=== PATIENT | female | born 1940 | race Caucasian/White ===

== ENCOUNTER 2018-01-03 13:36 | Emergency (ER) | payer MEDICARE ==
[2018-01-03] MEDS ORDERED: DUONEB 0.5-3 MG/3 ml Neb IH ONE ×2 (13:51→14:00)
--- NOTE | 2018-01-03 13:59 | ERPHSYRPT ---
- History of Present Illness Time Seen by Provider: 01/03/18 13:45 Source: patient, family Physician History: CC: short of air Hx: 77 y/o patient of [employer] Dr Gloria Pedroza, Dr Anatoliy Garcia. She has hx of chronic bronchitis. She is out of her nebs and MDI. stirred up dust this AM while cleaning the house. She has hx of allergies. She feels short of air for the past 2 hours. No chest pain. No fever. Chronic cough with chronic bronchitis. Symptoms moderate. Timing/Duration: today Severity of Dyspnea-Max: moderate Severity of Dyspnea-Current: moderate Allergies/Adverse Reactions: gabapentin Allergy (Intermediate, Verified 01/03/18 13:57) Penicillins Allergy (Mild, Verified 08/11/12 22:49) epinephrine Adverse Reaction (Intermediate, Verified 01/03/18 13:55) Home Medications: Albuterol Sulfate [Proair Hfa] 8.5 gm IH Q4HPRN PRN 06/11/17 [History] Alprazolam 0.5 mg PO DAILY 06/11/17 [History] Amlodipine Besylate 2.5 mg PO DAILY 06/11/17 [History] Aspirin 81 gm Chew [Baby Aspirin 81 mg Chew] 81 mg PO DAILY 06/11/17 [ History] Atorvastatin Calcium 20 mg PO DAILY 06/11/17 [History] Carvedilol [Coreg] 6.25 mg PO DAILY 06/11/17 [History] Clopidogrel Bisulfate 75 mg [PLAVIX 75 MG Tablet] 75 mg PO BID 06/11/17 [ History] Ergocalciferol (Vitamin D2) [Vitamin D] 50,000 unit PO WEEKLY 06/11/17 [History] Esomeprazole Magnesium [Nexium] 40 mg PO DAILY 06/11/17 [History] Hydrocodone/Acetaminophen [Hydrocodon-Acetaminoph 7.5-325] 1 each PO TID [History] Losartan/Hydrochlorothiazide [Losartan-Hctz 100-25 mg Tab] 1 each PO DAILY 06/11 [History] Meclizine HCl 25 mg [Antivert 25 mg] 25 mg PO Q12H PRN PRN 06/11/17 [ History] Nitroglycerin 0.4 mg Tablet [Nitrostat 0.4 MG Tablet] 0.4 mg SL Q5MIN PRN MR X 3 PRN 06/11/17 [History] Promethazine HCl 25 mg PO Q12H PRN PRN 06/11/17 [History] Sertraline HCl 25 mg PO Q2D 06/11/17 [History] Hx Tetanus, Diphtheria Vaccination/Date Given: No (UNSURE) Hx Influenza Vaccination/Date Given: No Hx Pneumococcal Vaccination/Date Given: Yes (2007) - Review of Systems Constitutional: Malaise, No Fever, No Chills Eyes: No Symptoms Respiratory: Cough (chronic), Dyspnea Cardiac: No Chest Pain Abdominal/Gastrointestinal: No Abdominal Pain, No Nausea, No Vomiting Musculoskeletal: No Back Pain, No Neck Pain, No Fall Skin: No Pruritis, No Rash Neurological: No Headache All Other Systems: Reviewed and Negative - Past Medical History Pertinent Past Medical History: Yes Neurological History: No Pertinent History ENT History: Cataracts Cardiac History: Myocardial Infarction ([place]) Respiratory History: Asthma, Bronchitis Endocrine Medical History: No Pertinent History Musculoskeletal History: Arthritis GI Medical History: GERD History: No Pertinent History Psycho-Social History: No Pertinent History Female Reproductive Disorders: No Pertinent History - Past Surgical History Past Surgical History: Yes Neuro Surgical History: No Pertinent History Cardiac: Cardiac Stent, Other Respiratory: No Pertinent History Gastrointestinal: Appendectomy Genitourinary: No Pertinent History Musculoskeletal: No Pertinent History Female Surgical History: Lumpectomy Other Surgical History: Right Carotid Endarterectomy - Social History Smoking Status: Former smoker Exposure to second hand smoke: Yes Drug Use: none Patient Lives Alone: No - Nursing Vital Signs Nursing Vital Signs: Initial Vital Signs Temperature 97.7 F 01/03/18 13:42 Pulse Rate 61 01/03/18 13:42 Respiratory Rate 20 01/03/18 13:42 Blood Pressure 180/84 01/03/18 13:42 O2 Sat by Pulse Oximetry 96 01/03/18 13:42 Pain Scale Pain Intensity 0 - Physical Exam General Appearance: alert Eye Exam: PERRL/EOMI Neck Exam: non-tender, supple Respiratory Exam: diminished breath sounds, No respiratory distress Cardiovascular/Chest Exam: regular rate/rhythm Abdominal/Gastrointestinal Exam: soft, No tenderness, No distention Extremity Exam: non-tender, no calf tenderness Neurologic Exam: alert, oriented x 3, cooperative, buggy man II-XII nml as tested, sensation nml, No motor deficits Skin Exam: warm, dry, No rash SpO2 Interpretation: normal SpO2: 96 Oxygen Delivery: Room Air - Course Nursing assessment & vital signs reviewed: Yes EKG Interpreted by Me: RATE (59), Sinus Skip, NORMAL AXIS, NORMAL INTERVALS ( QTc 450), Right Bundle Branch Block - Radiology Exams cxr X-ray Interpretation: Teleradiologist Report (nonacute chest with chronic features) Ordered Tests: Active Orders 24 hr Category Date Time Status EKG-ER Only STAT Care 01/03/18 13:51 Active IV Insertion STAT Care 01/03/18 13:51 Active Pulse Oximetry (ED) STAT Care 01/03/18 13:51 Active CHEST 2 VIEWS (PA AND LAT) Stat Exams 01/03/18 13:51 Completed CBC W DIFF Stat Lab 01/03/18 14:09 Completed CMP Routine Lab 01/03/18 14:09 Completed Lactic Acid Stat Lab 01/03/18 14:20 Completed Manual Differential NC Stat Lab 01/03/18 14:09 Completed NT PRO BNP Routine Lab 01/03/18 14:09 Completed TROPONIN Q3H Lab 01/03/18 14:09 Completed TROPONIN Q3H Lab 01/03/18 17:00 Ordered TROPONIN Q3H Lab 01/03/18 20:00 Ordered TROPONIN Q3H Lab 01/03/18 23:00 Ordered TROPONIN Q3H Lab 01/04/18 02:00 Ordered VENOUS BLOOD GAS Stat Lab 01/03/18 14:20 Completed Respiratory Nebulizer STAT RT 01/03/18 13:51 Completed Respiratory Nebulizer STAT RT 01/03/18 15:43 Ordered Medication Summary Generic Name Dose Route Start Last Admin Trade Name Freq PRN Reason Stop Dose Admin Furosemide 20 mg 01/03/18 15:43 Lasix 40 Mg/4 Ml IV 01/03/18 15:44 STAT ONE Discontinued Medications Generic Name Dose Route Start Last Admin Trade Name Freq PRN Reason Stop Dose Admin Albuterol/Ipratropium 3 ml 01/03/18 13:51 01/03/18 14:07 Duoneb 0.5-3 Mg/3 Ml Neb IH 01/03/18 13:52 3 ml STAT ONE Administration Albuterol/Ipratropium Confirm 01/03/18 14:00 Duoneb 0.5-3 Mg/3 Ml Neb Administered 01/03/18 14:01 Dose 3 ml IH .STK-MED ONE Lab/Rad Data: Laboratory Result Diagrams 01/03/18 14:09 01/03/18 14:09 Laboratory Results 01/03/18 01/03/18 01/03/18 Range/Units 14:20 14:09 14:09 WBC 5.2 (4.0-10.5) K/mm3 RBC 3.98 L (4.1-5.4) M/mm3 Hgb 10.9 L (12.0-16.0) gm/dl Hct 33.9 L (35-47) % MCV 85.2 (78-100) fl MCH 27.3 (26-32) pg MCHC 32.2 (32-36) g/dl RDW 14.1 H (11.5-14.0) % Plt Count 153 (150-450) K/mm3 MPV 9.6 H (6-9.5) fl Segmented Neutrophils 58 (36.0-66.0) % Lymphocytes (Manual) 31 (24-44) % Monocytes (Manual) 6 (0.0-12.0) % Eosinophils (Manual) 3 (0.00-3.0) % Differential Comment NORMAL Atypical Lymphocytes 2 % Platelet Estimate NORMAL (NORMAL) VBG pH 7.31 L (7.32-7.42) VBG pCO2 at Pat Temp 55 (42-55) mm/Hg VBG pO2 at Pat Temp 18 L (25-40) mm/Hg VBG HCO3 27.7 (22-28) meq/L VBG O2 Sat (Deonte) 34.7 L (95-100) VBG Base Excess 0.6 (-2.0-2.0) VBG Hemoglobin 11.8 VBG Carboxyhemoglobin 1.4 (0.0-6.9) % T HGB POC Potassium 4.1 (3.5-5.1) Sodium 132 L (136-145) mEq/L Potassium 4.3 (3.5-5.1) mEq/L Chloride 96 L (98-107) mEq/L Carbon Dioxide 27.7 (21-32) mEq/L Anion Gap 12.8 (5-15) MEQ/L BUN 22 H (9-20) mg/dL Creatinine 1.87 H (0.55-1.30) mg/dl Estimated GFR 28 ML/MIN Glucose 98 (70-110) MG/DL Lactic Acid 0.7 (0.4-2.0) Calcium 8.4 L (8.5-10.1) mg/dL Total Bilirubin 0.50 (0.2-1.0) mg/dL AST 27 (15-37) U/L ALT 17 (12-78) U/L Alkaline Phosphatase 70 (46-116) U/L Troponin I < 0.017 (0.000-0.056) ng/ml NT-Pro-B Natriuret Pep 1049 H (0-450) pg/ml Serum Total Protein 8.2 (6.4-8.2) gm/dL Albumin 3.8 (3.4-5.0) g/dL - Progress Progress Note: 01/03/18 15:44 Pt stable. Some basilar rales. Will give one dose lasix, Rx for alb and doxy and prednisone. She will have appt with Marimar Soto NP this week for recheck. Counseled pt/family regarding: lab results, diagnosis, need for follow-up, rad results - Departure Time of Disposition: 15:44 Departure Disposition: Home Clinical Impression: Shortness of breath, CHF (congestive heart failure), Acute exacerbation of chronic bronchitis Condition: Stable Critical Care Time: No Referrals: MARIMAR SOTO NP [Primary Care Provider] - Instructions: Heart Failure, Exacerbation of COPD ([place]) Additional Instructions: Rx albuterol neb soln. Rx doxycycline. Rx prednisone. See CHUN Soto this week for recheck. Return for problems or concerns. Avoid smoke or dust exposure. Prescriptions: Albuterol 2.5 mg/3 ml Neb [Proventil 2.5 mg/3 ml Neb] 2.5 mg IH Q4-6HPRN PRN #1 neb PRN Reason: breathing Doxycycline Hyclate 100 mg [Vibramycin 100 MG] 1 tab PO BID #20 tab Prednisone 20 mg [Deltasone 20 mg] 2 tab PO DAILY #10 tablet
[2018-01-03 14:23] LABS: Lactic Acid 0.7 (0.4-2.0); VBG BASE EXCESS 0.6 (-2.0-2.0); VBG CARBOXYHEMOGLOBIN 1.4 % T HGB (0.0-6.9); VBG HCO3- 27.7 meq/L (22-28); VBG HEMOGLOBIN 11.8; VBG O2 SATURATION 34.7 (95-100); VBG POTASSIUM 4.1 (3.5-5.1); VBG pH 7.31 (7.32-7.42)
[2018-01-03 14:28] LABS: Hematocrit 33.9 % (35-47); Hemoglobin 10.9 gm/dl (12.0-16.0); Mean Cell Volume 85.2 fl (78-100); Mean Corpuscular Hgb Concent. 32.2 g/dl (32-36); Mean Platelet Volume 9.6 fl (6-9.5); Platelet Count 153 K/mm3 (150-450); Red Blood Count 3.98 M/mm3 (4.1-5.4); Red Cell Distribution Width 14.1 % (11.5-14.0); White Blood Count 5.2 K/mm3 (4.0-10.5)
[2018-01-03 14:36] LABS: Mean Corpuscular Hemoglobin 27.3 pg (26-32)
[2018-01-03 14:44] LABS: ALBUMIN 3.8 g/dL (3.4-5.0); ALKALINE PHOSPHATASE 70 U/L (46-116); ANION GAP 12.8 MEQ/L (5-15); BLOOD UREA NITROGEN 22 mg/dL (9-20); CHLORIDE 96 mEq/L (98-107); Calcium 8.4 mg/dL (8.5-10.1); Carbon Dioxide 27.7 mEq/L (21-32); Creatinine 1 1.87 mg/dl (0.55-1.30); EST GLOMERULAR FILTRATION RATE 28 ML/MIN; Glucose 98 MG/DL (70-110); NT PRO BNP 1049 pg/ml (0-450); Potassium 4.3 mEq/L (3.5-5.1); SGOT/AST 27 U/L (15-37); SGPT/ALT 17 U/L (12-78); SODIUM 132 mEq/L (136-145); Total Protein 8.2 gm/dL (6.4-8.2)
[2018-01-03 14:47] LABS: TROPONIN < 0.017 ng/ml (0.000-0.056)
--- NOTE | 2018-01-03 14:50 | XRAY ---
Indication: Dyspnea. Chronic bronchitis. Comparison: July 27, 2013. PA/lateral chest remains clear. Heart and mediastinal structures within normal limits. Bony thorax intact with mild degenerative changes and thoracolumbar junction scoliosis. Impression: Nonacute chest with chronic features.
[2018-01-03 15:29] LABS: ATYPICAL LYMPHS 2 %; Eosinophil 3 % (0.00-3.0); Lymphocytes 31 % (24-44); Monocyte 6 % (0.0-12.0); Neutrophils 58 % (36.0-66.0); Platelet Estimate NORMAL (NORMAL); Total Cells Counted 100
[2018-01-03] MEDS ORDERED: Lasix 40 MG/4 ML IV ONE (15:43)
[2018-01-03] MEDS ORDERED: PROVENTIL 2.5 MG/3 ML NEB IH ONE ×2 (15:43→16:23)
[2018-01-03] MEDS ORDERED: Lasix 40 MG/4 ML ONE (16:13)
[2018-01-03 16:47] VITALS: BP 143/76; PULSE 64; O2SAT 99
== END 2018-01-03 16:49 | disposition home or self-care (01) ==
LOC: ED 13:36
DX: J42 Unspecified chronic bronchitis (principal); I50.9 Heart failure, unspecified; Z79.899 Other long term (current) drug therapy; I25.2 Old myocardial infarction
CPT/HCPCS: 36000; 36415; 71046; 80053; 82805; 83605; 83880; 84484; 85025; 93005; 94150; 94640; 96374; 99284; J1940; A9270-GY

== ENCOUNTER → 2018-02-08 | Emergency (ER) | payer MEDICARE ==
[~2018-02-08] MED LIST: BABY ASPIRIN 81 MG CHEW ONE; BABY ASPIRIN 81 MG CHEW PO ONE; Nitrostat 0.4 MG (ED) SL ONE
--- NOTE | 2018-02-08 01:32 | ERPHSYRPT ---
- History of Present Illness Time Seen by Provider: 02/08/18 01:21 Historian: patient, family Exam Limitations: no limitations Physician History: The patient is a 77-year-old female with her complaining of a sudden onset of left-sided chest pain and shortness of breath that began about 20 minutes before arrival. Her pain was a 7 out of 10 but now it is a 3 out of 10. She has not taken any nitroglycerin nor aspirin. She states the pain is more like a pressure. She was not nauseated. She was not sweaty. She had a heart attack in 2006. Since the heart attack she has had 3 cardiac stents placed. She has never taken any nitroglycerin since the heart attack. She used to smoke but quit in 2006. Her past medical history is significant for [place] , coronary artery disease, cardiac stents, hypertension, arthritis, high cholesterol, COPD. She has no local doctor. Her heel sprayer first, Dr Castro, is in [place], as is her primary medical doctor. Timing/Duration: today (20 min) Activities at Onset: rest Quality: pressure Location: substernal Chest Pain Radiation: no radiation Severity of Pain-Max: moderate Severity of Pain-Current: mild Modifying Factors: Improves With: nothing Associated Symptoms: shortness of breath, No nausea, No vomiting, No abdominal pain, No diaphoresis Prior Chest Pain/Cardiac Workup: cardiac cath, echocardiography, heart attack Nitro Today/Relief: no nitro taken today Aspirin Treatment Today: 81 mg x 1 Allergies/Adverse Reactions: gabapentin Allergy (Intermediate, Verified 02/08/18 01:56) Penicillins Allergy (Mild, Verified 02/08/18 01:56) epinephrine Adverse Reaction (Intermediate, Verified 02/08/18 01:56) Home Medications: Amlodipine Besylate 2.5 mg PO DAILY 06/11/17 [History] Aspirin 81 gm Chew [Baby Aspirin 81 mg Chew] 81 mg PO DAILY 06/11/17 [ History] Atorvastatin Calcium 20 mg PO DAILY 06/11/17 [History] Carvedilol [Coreg] 6.25 mg PO DAILY 06/11/17 [History] Clopidogrel Bisulfate 75 mg [PLAVIX 75 MG Tablet] 75 mg PO BID 06/11/17 [ History] Ergocalciferol (Vitamin D2) [Vitamin D] 50,000 unit PO WEEKLY 06/11/17 [History] Esomeprazole Magnesium [Nexium] 40 mg PO DAILY 06/11/17 [History] Hydrocodone/Acetaminophen [Hydrocodon-Acetaminoph 7.5-325] 1 each PO Q12H PRN PRN 06/11/17 [History] Losartan/Hydrochlorothiazide [Losartan-Hctz 100-25 mg Tab] 1 each PO DAILY 06/11 [History] Meclizine HCl 25 mg [Antivert 25 mg] 25 mg PO Q12H PRN PRN 06/11/17 [ History] Nitroglycerin 0.4 mg Tablet [Nitrostat 0.4 MG Tablet] 0.4 mg SL Q5MIN PRN MR X 3 PRN 06/11/17 [History] Promethazine HCl 25 mg PO Q12H PRN PRN 06/11/17 [History] Sertraline HCl 25 mg PO Q2D 06/11/17 [History] Celecoxib [Celebrex] 200 mg PO BID 01/31/18 [History] Hx Tetanus, Diphtheria Vaccination/Date Given: No (UNSURE) Hx Influenza Vaccination/Date Given: No Hx Pneumococcal Vaccination/Date Given: Yes (2007) - Review of Systems Constitutional: No Fever, No Chills Eyes: No Symptoms Ears, Nose, & Throat: No Symptoms Respiratory: Dyspnea Cardiac: Chest Pain Abdominal/Gastrointestinal: No Abdominal Pain, No Nausea, No Vomiting, No Diarrhea Genitourinary Symptoms: No Dysuria Musculoskeletal: No Back Pain, No Neck Pain Skin: No Rash Neurological: No Dizziness, No Focal Weakness, No Sensory Changes Psychological: No Symptoms Endocrine: No Symptoms Hematologic/Lymphatic: No Symptoms Immunological/Allergic: No Symptoms All Other Systems: Reviewed and Negative - Past Medical History Pertinent Past Medical History: Yes Neurological History: No Pertinent History ENT History: Cataracts Cardiac History: Myocardial Infarction ([place]) Respiratory History: Asthma, Bronchitis Endocrine Medical History: No Pertinent History Musculoskeletal History: Arthritis GI Medical History: GERD History: No Pertinent History Psycho-Social History: No Pertinent History Female Reproductive Disorders: No Pertinent History - Past Surgical History Past Surgical History: Yes Neuro Surgical History: No Pertinent History Cardiac: Cardiac Stent, Other Respiratory: No Pertinent History Gastrointestinal: Appendectomy Genitourinary: No Pertinent History Musculoskeletal: No Pertinent History Female Surgical History: Lumpectomy Other Surgical History: Right Carotid Endarterectomy - Social History Smoking Status: Former smoker Exposure to second hand smoke: Yes Drug Use: none Patient Lives Alone: No - Nursing Vital Signs Nursing Vital Signs: Initial Vital Signs Pulse Rate 70 02/08/18 01:15 Respiratory Rate 20 02/08/18 01:15 Blood Pressure 206/113 02/08/18 01:15 O2 Sat by Pulse Oximetry 97 02/08/18 01:15 Pain Scale Pain Intensity 0 - Physical Exam General Appearance: no apparent distress, alert Eye Exam: PERRL/EOMI, eyes nml inspection Ears, Nose, Throat Exam: normal ENT inspection, moist mucous membranes Neck Exam: normal inspection, non-tender, supple, full range of motion Respiratory Exam: normal breath sounds, lungs clear, No respiratory distress Cardiovascular Exam: regular rate/rhythm, normal heart sounds Gastrointestinal/Abdomen Exam: soft, No tenderness, No mass Pelvic Exam: not done Rectal Exam: not done Back Exam: normal inspection, No CVA tenderness, No vertebral tenderness Extremity Exam: normal inspection, normal range of motion Neurologic Exam: alert, oriented x 3, cooperative, normal mood/affect, sensation nml, No motor deficits Skin Exam: normal color, warm, dry SpO2 Interpretation: normal - Course EKG Interpreted by Me: RATE, Sinus Rhythm, Right Bundle Branch Block (imcomplete ), NORMAL ST-T, Other (no change compared to EKG 01/03/18.) - Radiology Exams Chest X-ray Interpretation: Interpreted by me, Negative (no change compared to CXR .) Ordered Tests: Active Orders 24 hr Category Date Time Status Quality Systems Manager STAT Care 02/08/18 01:35 Active EKG-ER Only STAT Care 02/08/18 01:34 Active IV Insertion STAT Care 02/08/18 01:34 Active Oxygen-ED Only NASAL CANNULA 2 lpm Care 02/08/18 01:34 Active CHEST 2 VIEWS (PA AND LAT) Stat Exams 02/08/18 01:35 Taken CBC W DIFF Stat Lab 02/08/18 02:02 Completed CMP Stat Lab 02/08/18 02:02 Completed Manual Differential NC Stat Lab 02/08/18 02:02 Completed PROTIME WITH INR Stat Lab 02/08/18 02:02 Completed PTT Stat Lab 02/08/18 02:02 Completed TROPONIN Q3H Lab 02/08/18 02:02 Completed TROPONIN Q3H Lab 02/08/18 06:15 Ordered TROPONIN Q3H Lab 02/08/18 09:15 Ordered TROPONIN Q3H Lab 02/08/18 12:15 Ordered TROPONIN Q3H Lab 02/08/18 15:15 Ordered Medication Summary Discontinued Medications Generic Name Dose Route Start Last Admin Trade Name Freq PRN Reason Stop Dose Admin Aspirin 324 mg 02/08/18 01:34 02/08/18 01:45 Baby Aspirin 81 Mg Chew PO 02/08/18 01:35 324 mg STAT ONE Administration Aspirin Confirm 02/08/18 01:40 Baby Aspirin 81 Mg Chew Administered 02/08/18 01:41 Dose 324 mg .ROUTE .STK-MED ONE Nitroglycerin 0.4 mg 02/08/18 01:34 02/08/18 01:45 Nitrostat 0.4 Mg (Ed) SL 02/08/18 01:35 0.4 mg STAT ONE Administration Nitroglycerin Confirm 02/08/18 01:41 Nitrostat 0.4 Mg (Ed) Administered 02/08/18 01:42 Dose 0.4 mg SL .STK-MED ONE Lab/Rad Data: Laboratory Result Diagrams 02/08/18 02:02 02/08/18 02:02 Laboratory Results 02/08/18 02/08/18 02/08/18 Range/Units 02:02 02:02 02:02 WBC (4.0-10.5) K/mm3 RBC (4.1-5.4) M/mm3 Hgb (12.0-16.0) gm/dl Hct (35-47) % MCV (78-100) fl MCH (26-32) pg MCHC (32-36) g/dl RDW (11.5-14.0) % Plt Count (150-450) K/mm3 MPV (6-9.5) fl Absolute Granulocytes (1.4-6.9) PT 10.7 (9.95-12.35) SECONDS INR 0.96 (0.8-3.0) APTT 36.1 (25.3-37.0) SECONDS Sodium 141 (137-145) mmol/L Potassium 4.2 (3.5-5.1) mmol/L Chloride 100 (98-107) mmol/L Carbon Dioxide 25 (22-30) mmol/L Anion Gap 20.3 H (5-15) MEQ/L BUN 22 H (7-17) mg/dL Creatinine 1.51 H (0.52-1.04) mg/dL Estimated GFR 36 ML/MIN Glucose 171 H (74-106) mg/dL Calcium 9.2 (8.4-10.2) mg/dL Total Bilirubin 0.30 (0.2-1.3) mg/dL AST 20 (14-36) U/L ALT 17 (0-35) U/L Alkaline Phosphatase 108 (38-126) U/L Troponin I 0.013 (0.000-0.034) ng/mL Serum Total Protein 8.4 H (6.3-8.2) g/dL Albumin 4.7 (3.5-5.0) g/dL 02/08/18 Range/Units 02:02 WBC 7.1 (4.0-10.5) K/mm3 RBC 4.16 (4.1-5.4) M/mm3 Hgb 11.6 L (12.0-16.0) gm/dl Hct 36.5 (35-47) % MCV 87.7 (78-100) fl MCH 27.8 (26-32) pg MCHC 31.8 L (32-36) g/dl RDW 14.5 H (11.5-14.0) % Plt Count 207 (150-450) K/mm3 MPV 9.6 H (6-9.5) fl Absolute Granulocytes 5.29 (1.4-6.9) PT (9.95-12.35) SECONDS INR (0.8-3.0) APTT (25.3-37.0) SECONDS Sodium (137-145) mmol/L Potassium (3.5-5.1) mmol/L Chloride (98-107) mmol/L Carbon Dioxide (22-30) mmol/L Anion Gap (5-15) MEQ/L BUN (7-17) mg/dL Creatinine (0.52-1.04) mg/dL Estimated GFR ML/MIN Glucose (74-106) mg/dL Calcium (8.4-10.2) mg/dL Total Bilirubin (0.2-1.3) mg/dL AST (14-36) U/L ALT (0-35) U/L Alkaline Phosphatase (38-126) U/L Troponin I (0.000-0.034) ng/mL Serum Total Protein (6.3-8.2) g/dL Albumin (3.5-5.0) g/dL - Progress Progress: improved Air Movement: good Blood Culture(s) Obtained: No Antibiotics given: No Counseled pt/family regarding: lab results, diagnosis, rad results - Departure Time of Disposition: 03:51 Departure Disposition: Transfer ([facility] to [facility] per DR Anguiano.) Clinical Impression: Chest pain Condition: Stable Critical Care Time: No Referrals: JESSICA HENRIQUEZ NP [Primary Care Provider] -
[2018-02-08 02:05] LABS: Granulocyte Absolute (ANC) 5.29 (1.4-6.9); Hematocrit 36.5 % (35-47); Hemoglobin 11.6 gm/dl (12.0-16.0); Mean Cell Volume 87.7 fl (78-100); Mean Corpuscular Hgb Concent. 31.8 g/dl (32-36); Mean Platelet Volume 9.6 fl (6-9.5); Platelet Count 207 K/mm3 (150-450); Red Blood Count 4.16 M/mm3 (4.1-5.4); Red Cell Distribution Width 14.5 % (11.5-14.0); White Blood Count 7.1 K/mm3 (4.0-10.5)
[2018-02-08 02:06] LABS: Mean Corpuscular Hemoglobin 27.8 pg (26-32)
[2018-02-08 02:17] LABS: INR 0.96 (0.8-3.0)
[2018-02-08 02:20] LABS: PTT 36.1 SECONDS (25.3-37.0)
[2018-02-08 02:22] LABS: ALBUMIN 4.7 g/dL (3.5-5.0); ANION GAP 20.3 MEQ/L (5-15); BILIRUBIN,TOTAL 0.3 mg/dL (0.2-1.3); Calcium 9.2 mg/dL (8.4-10.2); Creatinine 1 1.51 mg/dL (0.52-1.04); Potassium 4.2 mmol/L (3.5-5.1); Total Protein 8.4 g/dL (6.3-8.2)
[2018-02-08 04:08] VITALS: BP 160/73
[2018-02-08 05:03] VITALS: PULSE 73; O2SAT 97
[2018-02-08 07:17] LABS: Lymphocytes 17 % (24-44); Monocyte 4 % (0.0-12.0); Neutrophils 79 % (36.0-66.0); Nucleated Red Blood Cell 1 %; Total Cells Counted 100
[2018-02-08 07:18] LABS: Platelet Estimate NORMAL (NORMAL)
--- NOTE | 2018-02-08 09:20 | XRAY ---
Indication: Chest pain. Comparison: January 03, 2018. PA/lateral chest remains hyperinflated and clear. Heart is not enlarged. Vascularity normal. Bony thorax intact again with mild osteopenia and degenerative changes. Impression: Stable nonacute hyperinflated chest.
== END ==
LOC: ED 01:14
DX: R07.89 Other chest pain (principal); Z79.899 Other long term (current) drug therapy
CPT/HCPCS: 36000; 36415; 71046; 80053; 84484; 85025; 85610; 85730; 93005; 93041; 99285; A9270-GY

== ENCOUNTER 2018-06-13 05:30 | Emergency (ER) | payer MEDICARE ==
[2018-06-13 05:48] VITALS: BP 124/61; PULSE 69; O2SAT 96
--- NOTE | 2018-06-13 06:08 | ERPHSYRPT ---
- History of Present Illness Time Seen by Provider: 06/13/18 05:48 Source: patient Exam Limitations: clinical condition Patient Subjective Stated Complaint: lump in middle of throat Triage Nursing Assessment: Pt c/o of a lump in her throat that has been there since Wednesday and she feels like she can't get enough oxygen through, stated that she has taken drives in the cold air with the windows down and that has helped, tonite she hasn't gotten any relief, unable to feel the lump, doesn't appear to be in any distress Physician History: PATIENT WITH A HISTORY OF COPD,CAD, MYOCARDIAL INFARTION, AND STENT INSERTION, QUIT SMOKING 2006 COMPLAINS OF A PRODUCTIVE COUGH, SORETHROAT, FEELS LIKE A LUMP IN HER THROAT. DENIES DIFFICULTY BREATHING OR SWALLOWING. DENIES FEVER, CHILLS CHEST PAIN, PRESSURE, DIAPHORESIS OR PALPITATIONS. Timing/Duration: day(s) Cough Quality/Degree: productive cough Possible Cause: occasional episodes Modifying Factors: Improves With: nothing Associated Symptoms: sore throat International travel in last 2 weeks: No Allergies/Adverse Reactions: gabapentin Allergy (Intermediate, Verified 06/13/18 05:48) Penicillins Allergy (Mild, Verified 06/13/18 05:48) epinephrine Adverse Reaction (Intermediate, Verified 06/13/18 05:48) Home Medications: Amlodipine Besylate 5 mg PO DAILY 06/11/17 [History] Aspirin 81 gm Chew [Baby Aspirin 81 mg Chew] 81 mg PO DAILY 06/11/17 [ History] Atorvastatin Calcium 40 mg PO DAILY 06/11/17 [History] Carvedilol [Coreg] 6.25 mg PO BID 06/11/17 [History] Clopidogrel Bisulfate 75 mg [PLAVIX 75 MG Tablet] 75 mg PO DAILY 06/11/17 [History] Ergocalciferol (Vitamin D2) [Vitamin D] 50,000 unit PO UD 06/11/17 [History] Esomeprazole Magnesium [Nexium] 40 mg PO BID 06/11/17 [History] Hydrocodone/Acetaminophen [Hydrocodon-Acetaminoph 7.5-325] 1 each PO Q12H PRN PRN 06/11/17 [History] Losartan/Hydrochlorothiazide [Losartan-Hctz 100-25 mg Tab] 1 each PO DAILY 06/11 [History] Meclizine HCl 25 mg [Antivert 25 mg] 25 mg PO UD PRN 06/11/17 [History] Nitroglycerin 0.4 mg Tablet [Nitrostat 0.4 MG Tablet] 0.4 mg SL Q5MIN PRN MR X 3 PRN 06/11/17 [History] Promethazine HCl 25 mg PO UD PRN 06/11/17 [History] Celecoxib [Celebrex] 200 mg PO DAILY 01/31/18 [History] Universal-3S/Dha/Epa/Fish Oil [Fish Oil 1,200 mg Softgel] 1 cap PO BID 05/23/18 [ History] Guaifenesin [Guaifenesin ER] 1,200 mg PO BID 06/13/18 [History] Hx Tetanus, Diphtheria Vaccination/Date Given: No (UNSURE) Hx Influenza Vaccination/Date Given: No Hx Pneumococcal Vaccination/Date Given: Yes (2007) - Review of Systems Constitutional: No Fever, No Chills Eyes: No Symptoms Ears, Nose, & Throat: Throat Pain Respiratory: Cough, No Dyspnea Cardiac: No Symptoms, No Chest Pain, No Edema, No Syncope Abdominal/Gastrointestinal: No Symptoms, No Abdominal Pain, No Nausea, No Vomiting, No Diarrhea Genitourinary Symptoms: No Symptoms, No Dysuria Musculoskeletal: No Symptoms, No Back Pain, No Neck Pain Skin: No Rash Neurological: No Dizziness, No Focal Weakness, No Sensory Changes Psychological: No Symptoms Endocrine: No Symptoms All Other Systems: Reviewed and Negative - Past Medical History Pertinent Past Medical History: Yes Neurological History: No Pertinent History ENT History: Cataracts Cardiac History: Aneurysm, Coronary Artery Disease, Deep Vein Thrombosis, High Cholesterol, Hypertension, Myocardial Infarction ([place]) Respiratory History: Asthma, Other Endocrine Medical History: No Pertinent History Musculoskeletal History: Arthritis GI Medical History: GERD History: Renal Disease Psycho-Social History: No Pertinent History Female Reproductive Disorders: No Pertinent History Other Medical History: cataract forming on left eye. 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 - Past Surgical History Past Surgical History: Yes Neuro Surgical History: No Pertinent History Cardiac: Cardiac Catheterization Respiratory: Other Gastrointestinal: Appendectomy Genitourinary: No Pertinent History, Kidney Transplant Musculoskeletal: Orthopedic Surgery Female Surgical History: Lumpectomy Other Surgical History: 3 cardiac stents. Cyst removed from left breast. surgery on both feet. 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 - Social History Smoking Status: Former smoker Exposure to second hand smoke: Yes Drug Use: none Patient Lives Alone: No - Nursing Vital Signs Nursing Vital Signs: Initial Vital Signs Temperature 98.2 F 06/13/18 05:36 Pulse Rate 69 06/13/18 05:36 Blood Pressure 124/61 06/13/18 05:36 O2 Sat by Pulse Oximetry 96 06/13/18 05:36 Pain Scale Pain Intensity 0 - Physical Exam General Appearance: no apparent distress, alert Eye Exam: PERRL/EOMI, eyes nml inspection Ears, Nose, Throat Exam: normal ENT inspection, TMs normal, pharynx normal, moist mucous membranes, other (THERE IS NO POST PHARYNGEAL ANGIOEDEMA, UVULA SWELLING, STRIDOR OR AUDIBLE WHEEZES, AIRWAY PATENT) Neck Exam: normal inspection, non-tender, supple, full range of motion Respiratory Exam: normal breath sounds, lungs clear, other (NO WHEEZES, STRIDOR , RHONCHI, GOOD AIR EXCHANGE), No respiratory distress Cardiovascular Exam: regular rate/rhythm, normal heart sounds Gastrointestinal/Abdomen Exam: soft, No tenderness Back Exam: normal inspection, No CVA tenderness, No vertebral tenderness Extremity Exam: normal inspection, normal range of motion Neurologic Exam: alert, oriented x 3, cooperative, normal mood/affect, sensation nml, No motor deficits Skin Exam: normal color, warm, dry, No rash Lymphatic Exam: No adenopathy SpO2: 96 Oxygen Delivery: Room Air - Radiology Exams Chest X-ray Interpretation: Interpreted by me, Negative (HYPERINFLATION, ELEVATION OF RIGHT HEMIDIAPHRAM, NO EVIDENCE OF INFILTRATES.) Ordered Tests: Active Orders 24 hr Category Date Time Status CHEST 2 VIEWS (PA AND LAT) Stat Exams 06/13/18 05:58 Ordered - Progress Air Movement: good Progress Note: 06/13/18 06:08 ADMINISTERED LEVAQUIN 500MG ORALLY, RESPIRATORY RATE 18, PULSE OX OF 98% ON ROOM AIR 06/13/18 06:36 Counseled pt/family regarding: lab results, diagnosis, rad results - Departure Time of Disposition: 06:45 Departure Disposition: Home (644) Clinical Impression: ACUTE BRONCHITIS, ACUTE PHARYNGITIS Condition: Stable Critical Care Time: No Referrals: JESSICA HENRIQUEZ NP [Primary Care Provider] - Additional Instructions: ANTIBIOTIC CEFDINIR 300MG TWICE DAILY FOR 10 DAYS. TAKE OVER THE COUNTER COUGH SYRUP NEEDED. CONSULT YOUR PRIMARY CARE PROVIDER AND BUS SYSTEM OPERATOR FOR FOLLOWUP. Prescriptions: Cefdinir [Omnicef] 300 mg PO BID #20 capsule
--- NOTE | 2018-06-13 08:58 | XRAY ---
Indication: Cough. Comparison: February 08, 2018. PA/lateral chest remains hyperinflated and clear. Heart and mediastinal structures within normal limits. Bony thorax intact again with mild osteopenia and degenerative changes. Impression: Stable nonacute hyperinflated chest.
== END 2018-06-13 07:05 | disposition home or self-care (01) ==
LOC: ED 05:30
DX: J20.9 Acute bronchitis, unspecified (principal); J02.9 Acute pharyngitis, unspecified; J44.9 Chronic obstructive pulmonary disease, unspecified; I25.2 Old myocardial infarction; Z98.61 Coronary angioplasty status; Z79.899 Other long term (current) drug therapy; Z79.891 Long term (current) use of opiate analgesic; Z94.0 Kidney transplant status
CPT/HCPCS: 71046; 87651; 99283

== ENCOUNTER 2018-12-23 14:51 | Emergency (ER) | payer MEDICARE ==
--- NOTE | 2018-12-23 15:38 | ERPHSYRPT ---
- History of Present Illness Time Seen by Provider: 12/23/18 15:24 Source: patient Exam Limitations: no limitations Patient Subjective Stated Complaint: Was at PT and she started feeling weak and her blood pressure was 94/47 and her pulse was 57 Triage Nursing Assessment: Pt was at PT and she started feeling weak and her blood pressure was 94/47 and her pulse was 57, she said that she felt as if she was going to pass out, had a total left knee replacement 12/16/2018 and this was her first PT session and she hadn't done any exercises yet when she began feeling bad, Pulse 53, all other vitals wnl, incision looks like it's healing well, rates pain 5/10, pulses normal, last intake at 1200 Physician History: This is a 78-year-old white female with history of COPD, coronary artery disease , pneumonia, DVT, hyperlipidemia, cataracts, high blood pressure, myocardial infarction, asthma, renal disease with a recent total left knee arthroplasty. She apparently has been feeling as if she is going to pass out today she was at physical therapy today states she felt weak. She was noted to have a blood pressure of 94/47 a pulse of 47 so she was sent to the emergency room for evaluation. Patient states she has not been otherwise ill. Past medical history includes COPD, coronary artery disease, pneumonia, DVT, hyperlipidemia, cataracts, high blood pressure, myocardial infarction, asthma, renal disease, tracheal stenosis, Past surgical history includes carry a catheter, appendectomy, kidney transplant , cardiac stents, cyst removed from the left breast, laser on her throat, lumpectomy Social history former smoker Timing/Duration: today (around noon) Severity: moderate Modifying Factors: Improves With: other (patient with recent left total knee arthroplasty beginning physical therapy today) Associated Symptoms: weakness, other (Patient felt like she was going to pass out), No vomiting, No abdominal pain, No shortness of breath, No heartburn, No diaphoresis, No cough, No chills, No chest pain, No fever, No headaches, No loss of appetite, No malaise, No rash, No syncope, No seizure Allergies/Adverse Reactions: gabapentin Allergy (Intermediate, Verified 12/23/18 15:16) Penicillins Allergy (Mild, Verified 12/23/18 15:16) epinephrine Adverse Reaction (Intermediate, Verified 12/23/18 15:16) Home Medications: Amlodipine Besylate 5 mg PO BID 06/11/17 [History] Atorvastatin Calcium 20 mg PO DAILY 06/11/17 [History] Carvedilol [Coreg] 6.25 mg PO BID 06/11/17 [History] Ergocalciferol (Vitamin D2) [Vitamin D] 50,000 unit PO UD 06/11/17 [History] Esomeprazole Magnesium [Nexium] 40 mg PO BID 06/11/17 [History] Hydrocodone/Acetaminophen [Hydrocodon-Acetaminoph 7.5-325] 1 each PO Q12H PRN PRN 06/11/17 [History] Meclizine HCl 25 mg [Antivert 25 mg] 25 mg PO UD PRN 06/11/17 [History] Nitroglycerin 0.4 mg Tablet [Nitrostat 0.4 MG Tablet] 0.4 mg SL Q5MIN PRN MR X 3 PRN 06/11/17 [History] Promethazine HCl 25 mg PO UD PRN 06/11/17 [History] Guaifenesin [Guaifenesin ER] 1,200 mg PO BID 06/13/18 [History] Losartan Potassium 50 mg [Cozaar 50 MG] 100 mg PO DAILY 12/23/18 [History] Rivaroxaban 10 mg Tablet [Xarelto 10 mg Tablet] 10 mg PO DAILY 12/23/18 [ History] Hx Tetanus, Diphtheria Vaccination/Date Given: No (UNSURE) Hx Influenza Vaccination/Date Given: No Hx Pneumococcal Vaccination/Date Given: Yes (2007) - Review of Systems Constitutional: No Fever, No Chills Eyes: No Symptoms Ears, Nose, & Throat: No Symptoms Respiratory: No Cough, No Dyspnea Cardiac: Other (patient felt like she was going to pass out earlier), No Chest Pain, No Edema, No Syncope Abdominal/Gastrointestinal: No Abdominal Pain, No Nausea, No Vomiting, No Diarrhea Genitourinary Symptoms: No Dysuria Musculoskeletal: Other (recent left total knee arthroplasty), No Back Pain, No Neck Pain Skin: No Rash Neurological: No Dizziness, No Focal Weakness, No Sensory Changes Psychological: No Symptoms Endocrine: No Symptoms All Other Systems: Reviewed and Negative - Past Medical History Pertinent Past Medical History: Yes Neurological History: No Pertinent History ENT History: Cataracts Cardiac History: Myocardial Infarction ([place]) Respiratory History: COPD Endocrine Medical History: Adrenal Insufficiency Musculoskeletal History: Osteoarthritis GI Medical History: GERD History: Renal Disease Psycho-Social History: No Pertinent History Female Reproductive Disorders: No Pertinent History Other Medical History: [place] in 2007, 3 stints - Past Surgical History Past Surgical History: Yes Neuro Surgical History: No Pertinent History Cardiac: Cardiac Catheterization Respiratory: Other Gastrointestinal: Appendectomy Genitourinary: No Pertinent History, Kidney Transplant Musculoskeletal: Orthopedic Surgery Female Surgical History: Lumpectomy Other Surgical History: 3 cardiac stents. Cyst removed from left breast. surgery on both feet. 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 - Social History Smoking Status: Former smoker Exposure to second hand smoke: Yes Drug Use: none Patient Lives Alone: No - Female History Hx Now: No - Nursing Vital Signs Nursing Vital Signs: Initial Vital Signs Temperature 98.0 F 12/23/18 15:03 Pulse Rate 52 L 12/23/18 15:03 Blood Pressure 120/53 12/23/18 15:03 O2 Sat by Pulse Oximetry 95 12/23/18 15:03 Pain Scale Pain Intensity 5 - Physical Exam General Appearance: no apparent distress, alert Eye Exam: PERRL/EOMI, eyes nml inspection Ears, Nose, Throat Exam: normal ENT inspection, TMs normal, pharynx normal, moist mucous membranes Neck Exam: normal inspection, non-tender, supple, full range of motion Respiratory Exam: normal breath sounds, lungs clear, No respiratory distress Cardiovascular Exam: regular rate/rhythm, normal heart sounds, normal peripheral pulses, capillary refill <2 sec Gastrointestinal/Abdomen Exam: soft, normal bowel sounds, No tenderness, No mass Back Exam: normal inspection, normal range of motion, No CVA tenderness, No vertebral tenderness Extremity Exam: other (status post left total knee arthroplasty) Neurologic Exam: alert, oriented x 3, cooperative, instructional specialist II-XII nml as tested, normal mood/affect, nml cerebellar function, nml station & gait, sensation nml, other (Patient alert, oriented 3, normal finger to nose, no speech deficits, no facial droop, no pronator drift, rfid technician equal and symmetrical 5/5, Stewart Coma Scale 15 sensation intact to all extremities cranial nerves II through xII intactfull range of motion all extremities), No motor deficits Skin Exam: normal color SpO2 Interpretation: normal (95%) SpO2: 95 Ordered Tests: Active Orders 24 hr Category Date Time Status EKG-ER Only STAT Care 12/23/18 15:53 Active IV Insertion STAT Care 12/23/18 15:53 Active Orthostatic Vital Signs STAT Care 12/23/18 15:53 Active CBC W DIFF Stat Lab 12/23/18 16:00 Completed CMP Stat Lab 12/23/18 16:00 Completed TROPONIN Q3H Lab 12/23/18 16:00 Completed TROPONIN Q3H Lab 12/23/18 19:00 Ordered TROPONIN Q3H Lab 12/23/18 22:00 Ordered TROPONIN Q3H Lab 12/24/18 01:00 Ordered TROPONIN Q3H Lab 12/24/18 04:00 Ordered UA W/RFX UR CULTURE Stat Lab 12/23/18 15:54 Ordered Medication Summary Discontinued Medications Generic Name Dose Route Start Last Admin Trade Name Freq PRN Reason Stop Dose Admin Sodium Chloride 1,000 mls @ 999 mls/hr 12/23/18 15:53 12/23/18 17:35 Sodium Chloride 0.9% 1000 Ml IV 12/23/18 16:53 Infused .Q1H1M STA Infusion Sodium Chloride Confirm 12/23/18 16:07 Sodium Chloride 0.9% 1000 Ml Administered 12/23/18 16:08 Dose 1,000 mls @ ud .ROUTE .STK-MED ONE Lab/Rad Data: Laboratory Result Diagrams 12/23/18 16:00 12/23/18 16:00 Laboratory Results 12/23/18 12/23/18 12/23/18 Range/Units 16:00 16:00 16:00 WBC 5.2 (4.0-10.5) K/mm3 RBC 3.04 L (4.1-5.4) M/mm3 Hgb 8.5 L (12.0-16.0) gm/dl Hct 27.0 L (35-47) % MCV 88.8 (78-100) fl MCH 27.9 (26-32) pg MCHC 31.5 L (32-36) g/dl RDW 13.3 (11.5-14.0) % Plt Count 209 (150-450) K/mm3 MPV 9.1 (6-9.5) fl Gran % 58.1 (36.0-66.0) % Eos # (Auto) 0.34 (0-0.5) Absolute Lymphs (auto) 1.28 (1.0-4.6) Absolute Monos (auto) 0.56 (0.0-1.3) Lymphocytes % 24.5 (24.0-44.0) % Monocytes % 10.7 (0.0-12.0) % Eosinophils % 6.5 H (0.00-5.0) % Basophils % 0.2 (0.0-0.4) % Absolute Granulocytes 3.03 (1.4-6.9) Basophils # 0.01 (0-0.4) Sodium 134 L (137-145) mmol/L Potassium 3.5 (3.5-5.1) mmol/L Chloride 96 L (98-107) mmol/L Carbon Dioxide 28 (22-30) mmol/L Anion Gap 13.0 (5-15) MEQ/L BUN 25 H (7-17) mg/dL Creatinine 2.30 H (0.52-1.04) mg/dL Estimated GFR 21.9 ML/MIN Glucose 106 (74-106) mg/dL Calcium 8.7 (8.4-10.2) mg/dL Total Bilirubin 0.90 (0.2-1.3) mg/dL AST 33 (14-36) U/L ALT 18 (0-35) U/L Alkaline Phosphatase 109 (38-126) U/L Troponin I 0.024 (0.000-0.034) ng/mL Serum Total Protein 7.2 (6.3-8.2) g/dL Albumin 3.8 (3.5-5.0) g/dL - Progress Progress: improved Progress Note: 12/23/18 18:37 Patient's labs essentially normal, patient's EKG normal sinus rhythm 67 bpm normal axis I do not see any acute ST or T wave changes. Orthostatic vital signs are stable. Patient is feeling better after 1 L of normal saline. I did want any urine from this patient but she refuses to provide it and states she wants to go home. Will go ahead and discharge patient. Will of have her return home rest plenty of fluids and follow-up with her family doctor. - Departure Time of Disposition: 18:38 Departure Disposition: Home Clinical Impression: Near syncopal episode, Weakness Condition: Fair Critical Care Time: No Referrals: DOCTOR,NO FAMILY [Primary Care Provider] - Additional Instructions: Return home, rest, plenty of fluids. Follow-up with your family doctor. Return for acute distress or for severe symptoms.
[2018-12-23] MEDS ORDERED: Sodium Chloride 0.9% 1000 ML 1,000 ML IV STA (15:53)
[2018-12-23] MEDS ORDERED: Sodium Chloride 0.9% 1000 ML 1,000 ML ONE (16:07)
[2018-12-23 16:10] LABS: BASOPHIL % 0.2 % (0.0-0.4); Basophil (Absolute #) 0.01 (0-0.4); Eosinophil % 6.5 % (0.00-5.0); Eosinophil (Absolute #) 0.34 (0-0.5); Granulocyte Absolute (ANC) 3.03 (1.4-6.9); Granulocytes % 58.1 % (36.0-66.0); Hemoglobin 8.5 gm/dl (12.0-16.0); Lymphocyte (Absolute #) 1.28 (1.0-4.6); Lymphocytes % 24.5 % (24.0-44.0); Mean Cell Volume 88.8 fl (78-100); Mean Corpuscular Hgb Concent. 31.5 g/dl (32-36); Mean Platelet Volume 9.1 fl (6-9.5); Monocyte (Absolute #) 0.56 (0.0-1.3); Monocytes % 10.7 % (0.0-12.0); Platelet Count 209 K/mm3 (150-450); Red Blood Count 3.04 M/mm3 (4.1-5.4); Red Cell Distribution Width 13.3 % (11.5-14.0); White Blood Count 5.2 K/mm3 (4.0-10.5)
[2018-12-23 16:30] LABS: Mean Corpuscular Hemoglobin 27.9 pg (26-32)
[2018-12-23 16:32] LABS: ALBUMIN 3.8 g/dL (3.5-5.0); BILIRUBIN,TOTAL 0.9 mg/dL (0.2-1.3); Calcium 8.7 mg/dL (8.4-10.2); Creatinine 1 2.3 mg/dL (0.52-1.04); Potassium 3.5 mmol/L (3.5-5.1); Total Protein 7.2 g/dL (6.3-8.2)
[2018-12-23 16:55] VITALS: PULSE 72
[2018-12-23 18:23] VITALS: BP 114/58; O2SAT 95
== END 2018-12-23 18:57 | disposition home or self-care (01) ==
LOC: ED 14:51
DX: R55 Syncope and collapse (principal); R53.1 Weakness; J44.9 Chronic obstructive pulmonary disease, unspecified; I25.10 Atherosclerotic heart disease of native coronary artery without angina pectoris; Z86.718 Personal history of other venous thrombosis and embolism; Z79.01 Long term (current) use of anticoagulants; Z79.899 Other long term (current) drug therapy; E78.5 Hyperlipidemia, unspecified; I10 Essential (primary) hypertension; I25.2 Old myocardial infarction; J45.909 Unspecified asthma, uncomplicated; N28.9 Disorder of kidney and ureter, unspecified; M19.90 Unspecified osteoarthritis, unspecified site; K21.9 Gastro-esophageal reflux disease without esophagitis; E27.40 Unspecified adrenocortical insufficiency
CPT/HCPCS: 36000; 36415; 80053; 84484; 85025; 93005; 96360; 99284

== ENCOUNTER 2019-11-29 11:54 | Day surgery (SDC) | payer MEDICARE ==
[2012-10-04 00:50] VITALS: BP 117/70
[2019-11-29] MEDS ORDERED: Depo-Medrol 40 MG/ML IM ONE (11:55)
[2019-11-29] MEDS ORDERED: Marcaine 0.5% SDV 10 ML IJ ONE (11:55)
[2019-11-29] MEDS ORDERED: Ketamine HCl 50 MG/ML ONE (13:25)
[2019-11-29] MEDS ORDERED: DIPRIVAN 200 MG/20 ML IV ONE (13:25)
--- NOTE | 2019-11-29 14:59 | XRAY ---
Indication: Right knee injection. Intraoperative fluoroscopy was provided for 6 seconds. Single digital spot image submitted for interpretation demonstrates needle tip projecting over the right femur intercondylar notch. Small amount of contrast injected for needle tip placement. Correlate with intraoperative findings/report.
[2019-11-29] MEDS ORDERED: Lactated Ringers 1,000 ML IV ONE (15:31)
--- NOTE | 2019-11-29 16:32 | XRAY ---
6 seconds of fluoroscopy was used surgery for a right intra-articular knee injection.
== END 2019-11-29 13:52 | disposition home or self-care (01) ==
LOC: SDC-PAIN 11:54
PROVIDERS: ATTEND Psychiatry & Neurology Pain Medicine
DX: M17.11 Unilateral primary osteoarthritis, right knee (principal); M25.561 Pain in right knee; I10 Essential (primary) hypertension; E78.5 Hyperlipidemia, unspecified; J44.9 Chronic obstructive pulmonary disease, unspecified; E78.00 Pure hypercholesterolemia, unspecified; I25.2 Old myocardial infarction; K21.9 Gastro-esophageal reflux disease without esophagitis; Z79.899 Other long term (current) drug therapy
CPT/HCPCS: 20610; 73560; 77002; J1030; J2704; Q9966

== ENCOUNTER 2020-08-28 12:05 | Day surgery (SDC) | payer MEDICARE ==
[2012-10-04 00:50] VITALS: BP 117/70
[~2020-08-28 12:05] MED LIST changes: -BABY ASPIRIN 81 MG CHEW ONE; -BABY ASPIRIN 81 MG CHEW PO ONE; +DIPRIVAN 200 MG/20 ML IV ONE; +Ketamine HCl 50 MG/ML ONE; -Nitrostat 0.4 MG (ED) SL ONE
[2020-08-28] MEDS ORDERED: BUPIVACAINE 0.5% VIAL IJ ONE (12:06)
[2020-08-28] MEDS ORDERED: Depo-Medrol 40 MG/ML IM ONE (12:06)
[2020-08-28] MEDS ORDERED: Lactated Ringers 1,000 ML IV ONE (15:59)
--- NOTE | 2020-08-28 16:23 | XRAY ---
Indication: Right knee injection. Intraoperative fluoroscopy was provided for 5 seconds. Single digital spot image submitted for interpretation demonstrates needle tip projecting over the right femur intracondylar notch. Small amount of contrast injected for needle tip placement. Correlate with intraoperative findings/report.
--- NOTE | 2020-08-28 16:37 | XRAY ---
5 seconds of fluoroscopy was used surgery for a right intra-articular knee injection.
== END 2020-08-28 15:05 | disposition home or self-care (01) ==
LOC: SDC-PAIN 12:05
PROVIDERS: ATTEND Psychiatry & Neurology Pain Medicine
DX: M17.11 Unilateral primary osteoarthritis, right knee (principal); I10 Essential (primary) hypertension; E78.5 Hyperlipidemia, unspecified; J44.9 Chronic obstructive pulmonary disease, unspecified; E78.00 Pure hypercholesterolemia, unspecified; Z79.899 Other long term (current) drug therapy
CPT/HCPCS: 20610; 73560; 77002; J1030; J2704; Q9966

== ENCOUNTER 2020-09-03 07:48 | Day surgery (SDC) | payer MEDICARE ==
[~2020-09-03 07:48] MED LIST changes: +ACETAZOLAMIDE 250 MG TABLET PO ONE; +Ak-Dilate OPHTHALMIC*** 1.065 ML, Cyclogyl 1% OPHTH SOL 5 ML 1.065 ML, GATIFLOXACIN 0.5... OP ONE; +BETADINE 5% OPHTHALMIC 30 ML OP ONE; -DIPRIVAN 200 MG/20 ML IV ONE; -Ketamine HCl 50 MG/ML ONE; +Lactated Ringers 1,000 ML IV SCH; +NON-FORMULARY ITEM IJ ONE; +TETRACAINE 0.5% STERI-UNIT SOL OP ONE; +Zofran 4 MG/2 ML VIAL IV PRN; +cefUROXime sodium 0.005 GM in Sodium Chloride Flush 30 ML*** 0.5 ML IJ SCH
[2020-09-03] MEDS ORDERED: DIPRIVAN 200 MG/20 ML IV ONE (08:06)
[2020-09-03] MEDS ORDERED: Ketamine HCl 50 MG/ML ONE (08:06)
[2020-09-03] MEDS ORDERED: Lactated Ringers 1,000 ML IV ONE (08:34)
[2020-09-03 09:01] LABS: PROTIME 11.3 SECONDS (9.95-12.35)
[2020-09-03] MEDS ORDERED: Visionblue IO ONE (10:30)
[2020-09-03] MEDS ORDERED: Epinephrine Preservative Free 1 MG/ML INTRAOP ONE (10:30)
[2020-09-03] MEDS ORDERED: LIDOCAINE HCL 1% 50 MG/5 ML VL PF IJ ONE (10:30)
[2020-09-03 12:13] VITALS: BP 159/76; PULSE 59; O2SAT 97
--- NOTE | 2020-09-04 08:18 | OP ---
DATE/TIME OF OPERATION: 09/03/2020 1110 TIME DICTATED: 1803 PREOPERATIVE DIAGNOSIS: Senile cataract of left eye. POSTOPERATIVE DIAGNOSIS: Senile cataract of left eye. SURGEON: Gerardo Bazan MD CORPORATE SERVICES MANAGER: None. OPERATION: Cataract extraction of left eye with an intraocular lens implant. STANDARD COMPLEX___X___ ANESTHESIA: MAC. ___X__ Monitored anesthesia care in combination with topical and intra-cameral anesthesia (because of the established specific risk of reflux, arrhythmias, or an anxiety attack associated with ocular manipulation as well as difficulty of the meteorological observer to manage such potentially catastrophic events while simultaneously attempting to complete the surgical procedure, it was deemed necessary for the patient's safety to have an anesthesiologist or a nurse machine burrer present during the procedure whenever possible. The anesthesiologist or the nurse machine burrer was utilized to monitor and regulate the intravenous sedation of the patient, so the patient was cooperative, relaxed, and comfortable). Topical anesthesia using Tetracaine eye drops together with intra cameral anesthesia using Lidocaine 1% MPF. The nurse was utilized to monitor the patient. ANESTHESIA PROVIDER: Wai Flowers CRNA. COMPLICATIONS: None. BLOOD LOSS: None. INDICATIONS: The patient is undergoing cataract surgery in the hopes of eliminating the visual complaints and difficulty. PROCEDURE: After arriving at the facility's outpatient surgery area, an IV was started; the patient was given 5 mg of p.o. Versed. (If an anesthesia provider was not monitoring the patient) The patient was then given topical anesthetic Tetracaine eye drops. A cotton pellet was soaked into a solution of a combination of Zymaxid 0.5%, Diego-Synephrine 2.5% and Ocufen (other drops might have been substituted referenced in the patient's record). The pellet was inserted by the RN into the lower conjunctival cul-de-sac with a sterile forceps and left for 20 minutes. The pellet was then removed by the RN with a sterile forceps before taking the patient to the operating room. The preoperative area nurse identified the patient and marked the correct eye to be operated on. I identified the correct eye to be operated on and marked it appropriately in the outpatient surgery area. The patient was then taken into the operating room. Tetracaine eye drops were installed again in the correct eye. The eyelids and the lashes and the lid margins were scrubbed with Betadine solution. One drop of the diluted Betadine solution was placed in the conjunctival cul-de-sac for 45 seconds and then was irrigated. A drop of Tetracaine Gel was placed in the conjunctival cul-de-sac. The patient's forehead was taped to secure it during the procedure. The patient was monitored. The patient was then draped in the usual way for this procedure. An eye speculum was used to separate the eyelids. The eye was then fixated and a temporal 2.5 mm incision was made in the clear cornea temporally at the limbus. Through the incision, 0.25 cc of 1% non-preserved lidocaine was injected into the anterior chamber for intracameral anesthesia. The anterior chamber was then filled with viscoelastic. The pupil was small. I felt that it would be safer to mechanically dilate the pupil. A Malyugin ring was used at this point which dilated the pupil. That was removed at the end of the procedure prior to aspiration of the viscoelastic from the anterior chamber and posterior to the intraocular lens implant. __X__ The cataract had a great amount of cortical changes. That rendered seeing the anterior capsule difficult for a safe performance of an anterior capsulotomy. I injected an air bubble into the anterior chamber. I then injected 1 ML of vision blue solution into the anterior chamber. The vision blue solution was irrigated from the anterior chamber after 30 seconds. The anterior capsule was stained which facilitated performing the anterior capsulotomy safely. After that was completed, a cystotome was introduced into the anterior chamber and a round anterior capsulotomy was performed. The capsule was removed by a forceps. Hydrodissection was next carried utilizing a 25-gauge cannula and balanced salt solution to delineate the cortical material from the capsule and the nucleus from the cortical material. The nucleus was rotated freely into the capsular bag with no difficulty. The phaco tip of the [employer] Phacoemulsifier was introduced into the anterior chamber and two grooves were made into the nucleus 90 degrees apart. Using two spatulas resulted into the nucleus being fractured into four quadrants. The phaco tip was then used to remove each quadrant of the nucleus. Viscoelastic was used during this process to protect the corneal endothelium. Once the entire nucleus was removed, the phaco tip then was removed and the irrigation tip was introduced into the eye and the cortex was removed. The posterior capsule was polished. It was noticed that there was a tear into the posterior capsule with few vitreous strands into the pupil plan. An anterior vitrectomy was performed. A 19.50 diopter, [id number], posterior chamber lens implant, was inspected and found to be grossly normal. The implant was inserted into the implant injector cartridge; Viscoelastic again was introduced into the anterior chamber, which filled the capsular bag. The implant injector's cartridge tip was placed at the limbal wound and the posterior chamber implant was released into the capsular bag and rotated appropriately. The implant was found to be into the capsular bag and it was centered. ___X__ 0.2 ml of Tri-Moxi was introduced via 27 gauge cannula into the vitreous cavity through the ciliary processes. Viscoelastic was aspirated from the anterior chamber and posterior to the intraocular lens implant from the capsular bag using the irrigating tip. The anterior chamber was irrigated and filled with 5 cc antibiotic solution (500 cc of BSS plus 2 ml of Fortaz 100 mg/ml) ( if patient was not allergic to the medication). The lips of the corneal incision were hydrated using BSS solution. The anterior chamber was checked and found to be water tight. One drop each of antibiotic, steroid and NSAID drops (refer to chart for drops used) were placed in the conjunctival cul-de-sac of the operated eye. Patient tolerated the procedure quite well and left the operating room in satisfactory condition. DISCHARGE SUMMARY: The patient was released in stable condition. The patient and those with the patient were given an instruction sheet as of how to care for the eye after surgery as well as counseling on any abnormal laboratory studies by the postoperative RN. The patient was also given an appointment card for follow-up in the office and is to call immediately for any difficulties including but not limited to pain in the eye, decreased vision, discharge from the eye, headache and or fever. DISCHARGE DIAGNOSIS: Pseudophakia of left eye.
== END 2020-09-03 12:24 | disposition home or self-care (01) ==
LOC: SDC 07:48
PROVIDERS: ATTEND Ophthalmology
DX: H25.812 Combined forms of age-related cataract, left eye (principal); I10 Essential (primary) hypertension; E78.00 Pure hypercholesterolemia, unspecified; I51.9 Heart disease, unspecified; Z79.01 Long term (current) use of anticoagulants; Z79.899 Other long term (current) drug therapy
CPT/HCPCS: 36415; 66982; 85610; C1780; J0171; J2001; J2704; A9270-GY

== ENCOUNTER 2021-02-10 14:29 | Emergency (ER) | payer MEDICARE ==
--- NOTE | 2021-02-10 14:48 | ERPHSYRPT ---
- History of Present Illness Time Seen by Provider: 02/10/21 14:47 Source: patient Exam Limitations: no limitations Physician History: This is a right-handed 80-year-old white female who was tripped up by her dog when she was attempting to reel the dog in. She fell onto her left outstretched hand. Patient is on Plavix and she did hit her left forehead on the ground. There is a small abrasion present. No lacerations are present. She did not lose consciousness. Occurred: just prior to arrival Method of Injury: fell Quality: constant, aching (Left wrist) Severity of Pain-Max: moderate (Left wrist) Severity of Pain-Current: moderate Extremities Pain Location: wrist: left Modifying Factors: Improves With: movement Associated Symptoms: none Allergies/Adverse Reactions: gabapentin Allergy (Intermediate, Verified 02/10/21 14:49) Penicillins Allergy (Mild, Verified 02/10/21 14:49) epinephrine Adverse Reaction (Intermediate, Verified 02/10/21 14:49) Home Medications: Amlodipine Besylate 5 mg PO BID 06/11/17 [History] Atorvastatin Calcium 20 mg PO DAILY 06/11/17 [History] Carvedilol [Coreg] 6.25 mg PO DAILY 06/11/17 [History] Ergocalciferol (Vitamin D2) [Vitamin D] 50,000 unit PO UD 06/11/17 [History] Esomeprazole Magnesium [Nexium] 40 mg PO BID 06/11/17 [History] Hydrocodone/Acetaminophen [Hydrocodone-Acetamin 7.5-325] 1 each PO TID 06/11/17 [History] Meclizine HCl 25 mg [Antivert 25 mg] 25 mg PO UD PRN 06/11/17 [History] Nitroglycerin 0.4 mg Tablet [Nitrostat 0.4 MG Tablet] 0.4 mg SL Q5MIN PRN MR X 3 PRN 06/11/17 [History] Aspirin 81 mg PO DAILY 08/18/19 [History] Clopidogrel Bisulfate [Plavix] 75 mg PO DAILY 08/18/19 [History] Valsartan 80 mg PO DAILY 08/22/20 [History] Hx Tetanus, Diphtheria Vaccination/Date Given: No (UNSURE) Hx Influenza Vaccination/Date Given: No Hx Pneumococcal Vaccination/Date Given: Yes (2007) Travel Risk - International Travel Have you traveled outside of the country in past 3 weeks: No - Coronavirus Screening Are you exhibiting any of the following symptoms?: No Close contact with a COVID-19 positive Pt in past 14-21 Days: No - Review of Systems Constitutional: No Symptoms Eyes: No Symptoms Ears, Nose, & Throat: No Symptoms Respiratory: No Symptoms Cardiac: No Symptoms Abdominal/Gastrointestinal: No Symptoms Genitourinary Symptoms: No Symptoms Musculoskeletal: Fall, Injury (Left wrist) Skin: Other (Abrasion left forehead) Neurological: No Symptoms Psychological: No Symptoms Endocrine: No Symptoms Hematologic/Lymphatic: No Symptoms Immunological/Allergic: No Symptoms All Other Systems: Reviewed and Negative - Past Medical History Pertinent Past Medical History: Yes Neurological History: No Pertinent History ENT History: Cataracts Cardiac History: Coronary Artery Disease, High Cholesterol, Hypertension, Myocardial Infarction ([place]) Respiratory History: COPD Endocrine Medical History: Adrenal Insufficiency Musculoskeletal History: Osteoarthritis GI Medical History: GERD History: Renal Disease Psycho-Social History: No Pertinent History Female Reproductive Disorders: No Pertinent History Other Medical History: [place] in 2006, 3 stints - Past Surgical History Past Surgical History: Yes Neuro Surgical History: No Pertinent History Cardiac: Cardiac Catheterization Respiratory: Other Gastrointestinal: Appendectomy Genitourinary: No Pertinent History Musculoskeletal: Joint Replacement, Orthopedic Surgery Female Surgical History: Lumpectomy Other Surgical History: 3 cardiac stents. Cyst removed from left breast. surgery on both feet. 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 left total knee replacement - Social History Smoking Status: Former smoker Exposure to second hand smoke: Yes Drug Use: none Patient Lives Alone: No - Nursing Vital Signs Nursing Vital Signs: Initial Vital Signs Temperature 98 F 02/10/21 14:34 Pulse Rate 72 02/10/21 14:34 Respiratory Rate 20 02/10/21 14:34 Blood Pressure 191/77 02/10/21 14:34 O2 Sat by Pulse Oximetry 98 02/10/21 14:34 Pain Scale Pain Intensity 5 - Physical Exam General Appearance: no apparent distress, alert, anxiety Eyes, Ears, Nose, Throat Exam: normal ENT inspection, moist mucous membranes Neck Exam: normal inspection, non-tender, supple, full range of motion Cardiovascular/Respiratory Exam: chest non-tender, no respiratory distress Abdominal Exam: non-tender Back Exam: normal inspection, normal range of motion, No CVA tenderness, No vertebral tenderness Shoulder Exam: normal inspection, non-tender, no evidence of injury, normal ROM Elbow/Forearm Exam: normal inspection, non-tender, no evidence of injury, normal ROM Wrist Exam: bone tenderness, deformity, limited ROM, pain, soft tissue tenderness, swelling Hand Exam: normal inspection, non-tender, no evidence of injury, normal ROM Neuro/Tendon Exam: normal sensation, normal motor functions, normal tendon functions, responds to pain, no evidence tendon injury Mental Status Exam: alert, oriented x 3, cooperative Skin Exam: abrasion (Facial left forehead with mild ecchymosis), ecchymosis (As above) SpO2 Interpretation: normal O2 Delivery: Room Air - Course Nursing assessment & vital signs reviewed: Yes Ordered Tests: Active Orders 24 hr Category Date Time Status Cold Application STAT Care 02/10/21 14:37 Active Sling Application STAT Care 02/10/21 16:22 Active Splint STAT Care 02/10/21 15:51 Active FOREARM Stat Exams 02/10/21 15:25 Taken HEAD WITHOUT CONTRAST [CT] Stat Exams 02/10/21 15:08 Taken WRIST (MIN 3 VIEWS) Stat Exams 02/10/21 15:09 Taken - Progress Progress: improved, pain not gone completely, re-examined Progress Note: 02/10/21 16:30 X-ray of left wrist and forearm shows a nondisplaced ulnar fracture distally. CAT scan of the head without contrast shows a small left-sided forehead hematoma. There is no evidence of any skull fracture or intracranial abnormalities. 02/10/21 16:32 Post splint neurovascular check. Patient is neurovascularly intact. Counseled pt/family regarding: diagnosis, need for follow-up, rad results - Departure Departure Disposition: Home Clinical Impression: Forehead abrasion, Fall with injury, Closed fracture of ulna Condition: Stable Critical Care Time: No Referrals: JESSICA HENRIQUEZ NP [Primary Care Provider] - [facility]-Ortho M-F [id number] Additional Instructions: Follow-up with the [facility] orthopedic clinic tomorrow morning between 8 and 10 AM for further management of your left wrist fracture. Keep the superficial, small abrasion clean with soap and water. May apply ice to that area as well as to the left wrist. Use Tylenol and ibuprofen for pain control.
--- NOTE | 2021-02-10 16:36 | XRAY ---
Indication: Left frontal head injury following fall. Multiple contiguous axial images obtained through the head without contrast. Comparison: April 24, 2012. Age-appropriate global atrophy. No acute intracranial hemorrhage, abnormal extra-axial fluid collection, or mass effect. Fourth ventricle is midline without hydrocephalus. Josue-white matter differentiation preserved. Small left anterior temporal scalp hematoma. Bony calvarium intact. Visualized paranasal sinuses and mastoid air cells are clear. Impression: Small left anterior temporal scalp hematoma. No underlying fracture or acute intracranial abnormalities.
--- NOTE | 2021-02-10 16:43 | XRAY ---
Indication: Pain following fall. Comparison: None 3 view left wrist demonstrates nondisplaced distal ulnar shaft fracture and soft tissue swelling. Elsewhere osteopenia, ulnar carpal degenerative chondrocalcinosis, advanced degenerative changes 1st metacarpal multangular scaphoid articulation, and widened scapholunate interval. No other bony, articular, or soft tissue abnormalities.
--- NOTE | 2021-02-10 16:43 | XRAY ---
Indication: Pain following fall. Comparison: None 2 view left forearm demonstrates nondisplaced distal ulnar shaft fracture best seen on wrist exam. Elsewhere osteopenia, ulnar carpal degenerative chondrocalcinosis, advanced degenerative changes 1st metacarpal multangular scaphoid articulation, and widened scapholunate interval. No other bony, articular, or soft tissue abnormalities.
[2021-02-10 16:46] VITALS: BP 193/89; PULSE 68; O2SAT 94
== END 2021-02-10 16:47 | disposition home or self-care (01) ==
LOC: ED 14:29
DX: S00.81XA Abrasion of other part of head, initial encounter (principal); W01.0XXA Fall on same level from slipping, tripping and stumbling without subsequent striking against object, initial encounter; Y93.89 Activity, other specified; Y92.9 Unspecified place or not applicable; M25.532 Pain in left wrist; Z79.899 Other long term (current) drug therapy; I25.10 Atherosclerotic heart disease of native coronary artery without angina pectoris; I10 Essential (primary) hypertension; I25.2 Old myocardial infarction; J44.9 Chronic obstructive pulmonary disease, unspecified; N28.9 Disorder of kidney and ureter, unspecified; R58 Hemorrhage, not elsewhere classified; S52.202A Unspecified fracture of shaft of left ulna, initial encounter for closed fracture; X58.XXXA Exposure to other specified factors, initial encounter
CPT/HCPCS: 29125; 70450; 73090; 73110; 99284

== ENCOUNTER 2021-07-30 12:00 | Day surgery (SDC) | payer MEDICARE ==
[2012-10-04 00:50] VITALS: BP 117/70
[2021-07-30] MEDS ORDERED: Depo-Medrol 40 MG/ML IM ONE (12:01)
[2021-07-30] MEDS ORDERED: BUPIVACAINE 0.5% VIAL IJ ONE (12:01)
[2021-07-30] MEDS ORDERED: DIPRIVAN 200 MG/20 ML IV ONE (13:29)
[2021-07-30] MEDS ORDERED: Lactated Ringers 1,000 ML IV ONE (13:40)
--- NOTE | 2021-07-30 14:31 | XRAY ---
Indication: Right knee injection DEL. Intraoperative fluoroscopy provided for 8 seconds. Single digital spot image submitted for interpretation demonstrates needle tip projecting over the right femur intercondylar notch. Small amount of contrast injected for needle tip placement. Correlate with intraoperative findings/report.
--- NOTE | 2021-07-30 14:36 | XRAY ---
8 seconds of fluoroscopy was used in surgery for a right intra-articular knee injection.
== END 2021-07-30 13:55 | disposition home or self-care (01) ==
LOC: SDC-PAIN 12:00
PROVIDERS: ATTEND Psychiatry & Neurology Pain Medicine
DX: M17.11 Unilateral primary osteoarthritis, right knee (principal); Z79.899 Other long term (current) drug therapy
CPT/HCPCS: 20610; 73560; 77002; J1030; J2704; Q9966

== ENCOUNTER 2022-04-22 11:49 | Day surgery (SDC) | payer MEDICARE ==
[2012-10-04 00:50] VITALS: BP 117/70
[2022-04-22] MEDS ORDERED: Depo-Medrol 40 MG/ML IM ONE (11:50)
[2022-04-22] MEDS ORDERED: Marcaine Mpf 0.5% Vial 30 Ml IJ ONE (11:50)
[2022-04-22] MEDS ORDERED: DIPRIVAN 200 MG/20 ML IV ONE ×2 (13:09→13:19)
[2022-04-22] MEDS ORDERED: Lactated Ringers 1,000 ML IV ONE (14:15)
--- NOTE | 2022-04-22 14:34 | XRAY ---
Indication: Right knee injection. Intraoperative fluoroscopy provided for 15 seconds. Single digital spot image submitted for interpretation demonstrates needle tip projecting over the right femur intercondylar notch. Small amount of contrast was injected for needle tip placement. Correlate with intraoperative findings/report.
--- NOTE | 2022-04-22 14:37 | XRAY ---
15 seconds of fluoroscopy was used in surgery for a right knee intra-articular injection.
== END 2022-04-22 13:52 | disposition home or self-care (01) ==
LOC: SDC-PAIN 11:49
PROVIDERS: ATTEND Psychiatry & Neurology Pain Medicine
DX: M17.11 Unilateral primary osteoarthritis, right knee (principal); I10 Essential (primary) hypertension; Z79.899 Other long term (current) drug therapy
CPT/HCPCS: 20610; 73560; 77002; J1030; J2704; Q9966

== ENCOUNTER 2023-04-07 14:07 | Day surgery (SDC) | payer MEDICARE ==
[2012-10-04 00:50] VITALS: BP 117/70
[2023-04-07] MEDS ORDERED: Depo-Medrol 40 MG/ML IM ONE (14:08)
[2023-04-07] MEDS ORDERED: BUPIVACAINE 0.5% VIAL IJ ONE (14:08)
[2023-04-07] MEDS ORDERED: DIPRIVAN 200 MG/20 ML IV ONE (16:18)
--- NOTE | 2023-04-07 16:56 | XRAY ---
Indication: Right knee injection. Intraoperative fluoroscopy provided for 4 seconds. Single digital spot image submitted for interpretation demonstrates needle tip projecting over the right femur intercondylar notch. Small amount of contrast injected for needle tip placement. Correlate with intraoperative findings/report.
--- NOTE | 2023-04-07 17:20 | XRAY ---
4 seconds of fluoroscopy was used in surgery for a right knee intra-articular injection.
[2023-04-07] MEDS ORDERED: Lactated Ringers 1,000 ML IV ONE (17:44)
== END 2023-04-07 16:45 | disposition home or self-care (01) ==
LOC: SDC-PAIN 14:07
PROVIDERS: ATTEND Psychiatry & Neurology Pain Medicine
DX: M17.11 Unilateral primary osteoarthritis, right knee (principal); Z79.899 Other long term (current) drug therapy
CPT/HCPCS: 20610; 73560; 77002; J1030; J2704; Q9966

== ENCOUNTER 2024-08-01 07:41 | Day surgery (SDC) | payer MEDICARE ==
[2024-08-01 08:01] VITALS: RESP 16
[2024-08-01] MEDS ORDERED: Lactated Ringers 1,000 ML IV ONE (08:04)
[2024-08-01] MEDS: Lactated Ringers 1,000 ML IV SCH (08:07)
[2024-08-01] MEDS: TETRACAINE 0.5% STERI-UNIT SOL OP ONE ×2 (08:27→09:07)
[2024-08-01] MEDS ORDERED: VIGAMOX/BSS 0.15% SYR IO ONE (08:30)
[2024-08-01] MEDS ORDERED: BETADINE 5% OPHTHALMIC 30 ML OP ONE (08:30)
[2024-08-01] MEDS: Ak-Dilate OPHTHALMIC*** 1.065 ML, Cyclogyl 1% OPHTH SOL 1.065 ML, GATIFLOXACIN 0.5% OPH... OP ONE (08:30)
[2024-08-01] MEDS ORDERED: TRIAMCINOLONE 15 MG/ML INJ INTRAOP ONE (08:30)
[2024-08-01 10:27] LABS: ANION GAP 14.2 MEQ/L (5-15); Calcium 9.7 mg/dL (8.4-10.2); Creatinine 1 1.47 mg/dL (0.52-1.04); EST GLOMERULAR FILTRATION RATE 35.4 ML/MIN; Potassium 4.1 mmol/L (3.5-5.1)
[2024-08-01] MEDS ORDERED: Zofran 4 MG/2 ML VIAL IV PRN (10:30)
[2024-08-01] MEDS ORDERED: Epinephrine Preservative Free 1 MG/ML IJ ONE (11:30)
[2024-08-01] MEDS ORDERED: Versed 2 MG/2 ML Injection ONE (11:32)
[2024-08-01 11:57] VITALS: TEMP 97.5
[2024-08-01] MEDS: ACETAZOLAMIDE 250 MG TABLET PO ONE (12:03)
[2024-08-01 12:12] VITALS: BP 146/58; PULSE 82; O2SAT 96
== END 2024-08-01 12:20 | disposition home or self-care (01) ==
LOC: SDC 07:41
PROVIDERS: ATTEND Ophthalmology
DX: H25.811 Combined forms of age-related cataract, right eye (principal); I10 Essential (primary) hypertension
CPT/HCPCS: 36415; 80048; 93005; 99100; C1780; J0171; J2250; A9270-GY

== ENCOUNTER 2025-10-18 00:09 | Observation (INO) | payer MEDICARE ==
[2025-10-18 00:46] LABS: BASOPHIL % 0.5 % (0.1-1.2); Basophil (Absolute #) 0.03 x10^3/uL (0.01-0.08); Eosinophil (Absolute #) 0.18 x10^3/uL (0.04-0.36); Hematocrit 42.5 % (34.1-44.9); Hemoglobin 12.9 g/dL (11.2-15.7); IMMATURE GRAN # 0.02 x10^3u/L (0.001-0.031); IMMATURE GRAN % 0.3 % (0.001-0.429); Lymphocyte (Absolute #) 1.42 x10^3/uL (1.18-3.74); Mean Corpuscular Hemoglobin 29.5 pg (25.6-32.2); Mean Corpuscular Hgb Concent. 30.4 g/dL (32.2-35.5); Monocyte (Absolute #) 0.44 x10^3/uL (0.24-0.86); NUCLEATED RBC # 0.00 x10^3u/L (0.00-0.012); NUCLEATED RBC % 0.0 % (0.00-0.2); Platelet Count 106 x10^3/uL (182-369); Red Blood Count 4.38 x10^6/uL (3.93-5.22); White Blood Count 6.3 x10^3/uL (3.98-10.04)
[2025-10-18 00:58] LABS: Calcium 9.6 mg/dL (8.4-10.2); Carbon Dioxide 21.0 mmol/L (22-30); Creatinine 1 1.14 mg/dL (0.52-1.04); EST GLOMERULAR FILTRATION RATE 47.8 ML/MIN; Glucose 120.0 mg/dL (74-106); Potassium 3.4 mmol/L (3.5-5.1); SGOT/AST 46.0 U/L (14-36); SGPT/ALT 26.0 U/L (0-35); Total Protein 8.6 g/dL (6.3-8.2)
--- NOTE | 2025-10-18 01:21 | XRAY ---
CLINICAL HISTORY: dizziness COMPARISON: 14:22:20 [facility] PSYCHIATRIST. TECHNIQUE: Multiple axial images were obtained from the skull base to the vertex without contrast. CT scan was performed according to ALARA (as low as reasonably achievable). FINDINGS: There is cerebral atrophy. No evidence of space-occupying lesion, hemorrhage, edema, mass effect, midline shift, extra-axial collection, or hydrocephalus is noted. Basal cisterns are symmetric and normal in size and configuration. There are scattered periventricular hypodensities, as can be seen with chronic microvascular ischemic changes. The sanchez-white matter differentiation is preserved. Visualized paranasal sinuses and mastoid air cells are well aerated. Orbital contents are within normal limits. Bony structures are intact. IMPRESSION: 1. No evidence of an acute intracranial abnormality is demonstrated. 2. Chronic microvascular ischemic changes ? stable. 3. Cerebral atrophy ? stable. Electronically Signed by: Floyd Potts MD. (10/18/2025 01:19:26 EST)
--- NOTE | 2025-10-18 01:52 | ERPHSYRPT ---
- History of Present Illness Time Seen by Provider: 10/18/25 00:34 Source: patient Exam Limitations: no limitations Patient Subjective Stated Complaint: pt reports approx 2230 last evening she felt dizzy like she could pass out and was nauseated, pt states she did not fall, vomit or lose consciousness. pt states she feels better but not back to her baseline. pt denies pain of any kind during this episode or after. Triage Nursing Assessment: pt is aox3, pupils perrl, speech is clear, appropriate, afebrile, resps easy and non labored, cap refill < 3 seconds, radial pusles strong and equal, abdomen is soft non tender, pt skin is pink warm dry. Physician History: Patient is an 85-year-old female history of hypertension hyperlipidemia coronary artery disease [place] COPD adrenal insufficiency GERD renal disease former smoker presents to our ED for evaluation of dizziness. Patient states the dizziness started at approximately 2230. At that time patient felt as though she was going to pass out. Patient was nauseated but did not vomit. Patient states that she felt better. The sense of passing out resolved but the dizziness did not completely resolve. No trauma no fever. No focal or lateralizing symptomology. Symptoms are mild to moderate in intensity. No specific worsening or improving factors. Patient voices no other complaints or concerns at this time. Portions of this note were created with voice recognition technology. There may be grammatical, spelling, punctuation or sound alike errors Timing/Duration: today Severity: moderate Modifying Factors: Improves With: nothing Associated Symptoms: denies symptoms Allergies/Adverse Reactions: gabapentin Allergy (Intermediate, Verified 10/18/25 00:30) Swelling of Feet Penicillins Allergy (Mild, Verified 10/18/25 00:30) Anaphylactic Reaction epinephrine Adverse Reaction (Intermediate, Verified 10/18/25 00:30) Irregular Heart Beat Home Medications: Amlodipine Besylate 2.5 mg PO BID 06/11/17 [History] Atorvastatin Calcium 20 mg PO DAILY 06/11/17 [History] Ergocalciferol (Vitamin D2) [Vitamin D] 50,000 unit PO UD 06/11/17 [History] Esomeprazole Magnesium [Nexium] 20 mg PO BID 06/11/17 [History] Hydrocodone/Acetaminophen [Hydrocodone-Acetamin 7.5-325] 1 each PO TID 06/11/17 [History] Meclizine HCl 25 mg [Antivert 25 mg] 25 mg PO UD PRN 06/11/17 [History] carvediloL [Coreg] 6.25 mg PO DAILY 06/11/17 [History] Clopidogrel Bisulfate [Plavix] 75 mg PO DAILY 08/18/19 [History] Valsartan 80 mg PO DAILY 08/22/20 [History] Albuterol Sulfate [Proair Respiclick] 90 mcg IH UD 06/23/24 [History] [place]-3 Fatty Acids [[place]-3] 1,000 mg PO DAILY 06/23/24 [History] Topiramate 50 mg PO DAILY 06/23/24 [History] Aspirin EC 81 mg [Ecotrin 81 mg] 81 mg PO DAILY 10/18/25 [History] Lutein 20 mg PO DAILY 10/18/25 [History] Magnesium Oxide 400 mg [Mag-Ox 400] 800 mg PO DAILY 10/18/25 [History] Hx Tetanus, Diphtheria Vaccination/Date Given: No Hx Influenza Vaccination/Date Given: No Hx Pneumococcal Vaccination/Date Given: No Immunizations Up to Date: No Travel Risk - International Travel Have you traveled outside of the country in past 3 weeks: No - Emerging Infectious Disease Are you exhibiting symptoms associated with any current EIDs: No - Review of Systems All Other Systems: Reviewed and Negative - Past Medical History Pertinent Past Medical History: Yes Neurological History: No Pertinent History ENT History: Cataracts Cardiac History: Coronary Artery Disease, High Cholesterol, Hypertension, Myocardial Infarction ([place]) Respiratory History: COPD Endocrine Medical History: Adrenal Insufficiency Musculoskeletal History: Osteoarthritis GI Medical History: GERD History: Renal Disease Psycho-Social History: No Pertinent History Female Reproductive Disorders: No Pertinent History Other Medical History: [place] in 2006, 3 stints, abd anuersym small one pt states - Past Surgical History Past Surgical History: Yes Neuro Surgical History: No Pertinent History Cardiac: Cardiac Catheterization Respiratory: Other Gastrointestinal: Appendectomy Genitourinary: No Pertinent History Musculoskeletal: Joint Replacement, Orthopedic Surgery Female Surgical History: Lumpectomy Other Surgical History: 3 cardiac stents. Cyst removed from left breast. surgery on both feet. 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 left total knee replacement trachea lazer 18 times dt scar tissue - Social History Smoking Status: Former smoker Exposure to second hand smoke: No Drug Use: none - Social Determinants of Health Will the patient participate in the screening: Yes Do you worry about a steady place to live?: No Do you have any problems with any of the following?: No known problems In the past 12 months,have you had to go without utilities?: No Transportation Issues: No Has anyone in your support network made you feel unsafe?: No Have you or anyone in your house had to go w/o enough food: No - Nursing Vital Signs Nursing Vital Signs: Initial Vital Signs O2 Sat by Pulse Oximetry 100 10/18/25 00:16 Pain Scale Pain Intensity 0 - Physical Exam General Appearance: no apparent distress, alert Eye Exam: PERRL/EOMI, eyes nml inspection Ears, Nose, Throat Exam: normal ENT inspection, dry mucous membranes Neck Exam: normal inspection, full range of motion Respiratory Exam: normal breath sounds, lungs clear, airway intact, No respiratory distress Cardiovascular Exam: regular rate/rhythm, normal heart sounds, normal peripheral pulses Gastrointestinal/Abdomen Exam: soft, normal bowel sounds, No tenderness, No mass Back Exam: normal inspection, normal range of motion, No CVA tenderness, No vertebral tenderness Extremity Exam: normal inspection, normal range of motion, pelvis stable Neurologic Exam: alert, oriented x 3, cooperative, normal mood/affect, sensation nml, No motor deficits Skin Exam: normal color, warm, dry, No rash Lymphatic Exam: No adenopathy SpO2 Interpretation: normal SpO2: 94 O2 Delivery: Room Air - Course Nursing assessment & vital signs reviewed: Yes EKG Interpreted by Me: RATE (61), Sinus Rhythm, NORMAL AXIS, NORMAL INTERVALS, NORMAL QRS - CT Exams Head CT Interpretation: Tele-radiologist Report (No evidence of an acute intracranial abnormality is demonstrated.) Ordered Tests: Active Orders 24 hr Category Date Time Status Safety Engineer Pressure Vessels STAT Care 10/18/25 00:17 Active EKG-ER Only STAT Care 10/18/25 00:16 Completed IV Insertion STAT Care 10/18/25 00:16 Active Pulse Oximetry (ED) STAT Care 10/18/25 00:16 Active HEAD WITHOUT CONTRAST [CT] Stat Exams 10/18/25 00:28 Completed CBC W DIFF Stat Lab 10/18/25 00:30 Completed CMP Stat Lab 10/18/25 00:30 Completed TROPONIN Q4H Lab 10/18/25 00:30 Completed TROPONIN Q4H Lab 10/18/25 04:30 Ordered TROPONIN Q4H Lab 10/18/25 08:30 Ordered UA W/RFX UR CULTURE Stat Lab 10/18/25 02:25 Ordered Transfer Order Routine Transfer 10/18/25 Ordered Medication Summary Generic Name Dose Route Start Last Admin Trade Name Balbirq PRN Reason Stop Dose Admin Sodium Chloride 1,000 mls @ 100 mls/hr 10/18/25 00:30 10/18/25 00:45 Sodium Chloride 0.9% 1000 Ml IV 11/17/25 00:29 100 mls/hr .Q10H MADAY Administration Lab/Rad Data: Laboratory Result Diagrams 10/18/25 00:30 10/18/25 00:30 Laboratory Results 10/18/25 10/18/25 10/18/25 Range/Units 00:30 00:30 00:30 WBC 6.3 (3.98-10.04) x10^3/uL RBC 4.38 (3.93-5.22) x10^6/uL Hgb 12.9 (11.2-15.7) g/dL Hct 42.5 (34.1-44.9) % MCV 97.0 H (79.4-94.8) fL MCH 29.5 (25.6-32.2) pg MCHC 30.4 L (32.2-35.5) g/dL RDW 13.4 (11.7-14.4) % Plt Count 106 L (182-369) x10^3/uL MPV 10.9 (9.4-12.3) fL Gran % 66.6 (34.0-71.1) % Immature Gran % (Auto) 0.3 (0.001-0.429) % Nucleat RBC Rel Count 0.0 (0.00-0.2) % Eos # (Auto) 0.18 (0.04-0.36) x10^3/uL Immature Gran # (Auto) 0.02 (0.001-0.031) x10^3u/L Absolute Lymphs (auto) 1.42 (1.18-3.74) x10^3/uL Absolute Monos (auto) 0.44 (0.24-0.86) x10^3/uL Absolute Nucleated RBC 0.00 (0.00-0.012) x10^3u/L Lymphocytes % 22.7 (19.3-51.7) % Monocytes % 7.0 (4.7-12.5) % Eosinophils % 2.9 (0.7-5.8) % Basophils % 0.5 (0.1-1.2) % Absolute Granulocytes 4.17 (1.56-6.13) x10^3/uL Basophils # 0.03 (0.01-0.08) x10^3/uL Sodium 138 (135-145) mmol/L Potassium 3.4 L (3.5-5.1) mmol/L Chloride 105 (98-107) mmol/L Carbon Dioxide 21 L (22-30) mmol/L Anion Gap 15.1 H (5-15) MEQ/L BUN 15 (7-17) mg/dL Creatinine 1.14 H (0.52-1.04) mg/dL Estimated GFR 47.8 ML/MIN Glucose 120 H (74-106) mg/dL Calcium 9.6 (8.4-10.2) mg/dL Total Bilirubin 0.80 (0.2-1.3) mg/dL AST 46 H (14-36) U/L ALT 26 (0-35) U/L Alkaline Phosphatase 262 H (38-126) U/L Troponin I < 0.012 (0.000-0.033) ng/mL Serum Total Protein 8.6 H (6.3-8.2) g/dL Albumin 4.3 (3.5-5.0) g/dL - Progress Progress: improved Progress Note: Patient is an 85-year-old female history of hypertension hyperlipidemia coronary artery disease [place] COPD adrenal insufficiency GERD renal disease former smoker presents to our ED for evaluation of dizziness. Patient states the dizziness started at approximately 2230. At that time patient felt as though she was going to pass out. Patient was nauseated but did not vomit. Patient states that she felt better. The sense of passing out resolved but the dizziness did not completely resolve. Case discussed with teleneurologist at approximately 2:20 AM Physical exam right oral mucous membranes. No focal or lateralizing symptomology. Dizziness gradually improved and is now resolved. CT head negative for acute intracranial pathology. Laboratory workup suggest mild degree of dehydration. IV fluids administered. Patient takes an aspirin daily. Patient is due for her aspirin later this morning. She will receive her aspirin along with the rest of her daily medication regimen. History obtained from patient and EMS I considered administering aspirin however I will hold off as patient had aspirin yesterday morning part of her daily regimen.. She will receive her aspirin as part of her daily regimen later this morning upon arrival to the floor Differential diagnosis includes vasovagal, TIA, cardiogenic syncope Case discussed with hospitalist Dr. Allen steps admission to observation at approximately 3:15 AM. 10/18/25 03:18 Complexity of problems addressed is moderate acute complicated. No critical care time. Complexity of data reviewed and analyzed is extensive. Test ordered test reviewed results analyzed and correlated clinically with history and physical exam. Management discussed with teleneurologist and hospitalist. Risk of complication at risk of morbidity/mortality of patient management is high. Patient requires hospitalization for further evaluation and treatment. Vital stable. Time spent to admit patient approximately 20 minutes. Plan of care established for shared decision making. No social determinants of health present to impede follow-up. Portions of this note were created with voice recognition technology. There may be grammatical, spelling, punctuation or sound alike errors 10/18/25 03:[address] Maryjo Will see patient in: hospital (observation) Counseled pt/family regarding: lab results, diagnosis, rad results - Departure Departure Disposition: Observation Clinical Impression: TIA (transient ischemic attack), Near syncope, Dizziness, Dehydration Condition: Stable Critical Care Time: No Referrals: CONNIE SEWELL [Primary Care Provider, [facility]] - Follow up/PCP as directed
[2025-10-18 03:42] LABS: Glucose, Urine Negative (Negative); Protein,Urine Dip Trace (Negative); RBC 0-2 /HPF (0-5); WBC 21-50 /HPF (0-5)
[2025-10-18] MEDS ORDERED: ANTIVERT 25 MG PO PRN (04:01)
[2025-10-18] MEDS ORDERED: Zofran 4 MG/2 ML VIAL IV PRN (04:07)
[2025-10-18] MEDS ORDERED: TYLENOL 325 MG PO PRN (04:07)
[2025-10-18] MEDS: POTASSIUM CHLORIDE 20 mEq IN WATER 100ML 20 MEQ/100 ML BAG IV ONE (04:32)
--- NOTE | 2025-10-18 04:33 | PCM.HP ---
History of Present Illness - Chief Complaint Chief Complaint: Near syncope, dizziness Date: 10/18/25 History of Present Illness: is a 85 year old female with a history of hypertension, hyperlipidemia, coronary artery disease, COPD, adrenal insufficiency, GERD, and CKD, who presented to the ED for evaluation of dizziness. The patient stated the dizziness started at approximately 22:30 on 10/17/25. At that time patient felt as though she was going to pass out but she did not have LOC. The patient was nausea but did not vomit. The sense of passing out resolved but the dizziness did not completely resolve. No trauma no fever. She denied any focal or lateralizing weakness, numbness or paresthesias. Symptoms were mild to moderate in intensity without specific worsening or improving factors. In the ED, the patient was assessed by neurology with a recommendation for a brain MRI. - Review of Systems Constitutional: No Symptoms Eyes: No Symptoms Ears, Nose, & Throat: No Symptoms Respiratory: No Symptoms Cardiac: No Symptoms Abdominal/Gastrointestinal: Nausea, No Abdominal Pain, No Vomiting, No Diarrhea, No Constipation, No Hematemesis, No Hematochezia, No Melena, No Dysphagia, No Appetite Changes Genitourinary Symptoms: No Symptoms Musculoskeletal: No Symptoms Skin: No Symptoms Neurological: Dizziness, Vertigo, No Focal Weakness, No Gait Changes, No Headache, No Irritability, No Lethargy, No Paralysis, No Parasthesia, No Seizure, No Sensory Changes, No Speech Changes, No Tics, No Tremors Psychological: No Symptoms Endocrine: No Symptoms Hematologic/Lymphatic: No Symptoms Immunological/Allergic: No Symptoms All Other Systems: Reviewed and Negative Medications & Allergies Home Medications: Home Medication List Amlodipine Besylate 2.5 mg PO BID 06/11/17 [History Confirmed 10/18/25] Atorvastatin Calcium 20 mg PO DAILY 06/11/17 [History Confirmed 10/18/25] Ergocalciferol (Vitamin D2) [Vitamin D] 50,000 unit PO UD 06/11/17 [History Confirmed 10/18/25] Esomeprazole Magnesium [Nexium] 20 mg PO BID 06/11/17 [History Confirmed 10/18/25] Hydrocodone/Acetaminophen [Hydrocodone-Acetamin 7.5-325] 1 each PO TID 06/11/17 [History Confirmed 10/18/25] Meclizine HCl 25 mg [Antivert 25 mg] 25 mg PO UD PRN 06/11/17 [History Confirmed 10/18/25] carvediloL [Coreg] 6.25 mg PO DAILY 06/11/17 [History Confirmed 10/18/25] Clopidogrel Bisulfate [Plavix] 75 mg PO DAILY 08/18/19 [History Confirmed 10/18/25] Valsartan 80 mg PO DAILY 08/22/20 [History Confirmed 10/18/25] Albuterol Sulfate [Proair Respiclick] 90 mcg IH UD 06/23/24 [History Confirmed 10/18/25] [place]-3 Fatty Acids [[place]-3] 1,000 mg PO DAILY 06/23/24 [History Confirmed 10/18/25] Topiramate 50 mg PO DAILY 06/23/24 [History Confirmed 10/18/25] Aspirin EC 81 mg [Ecotrin 81 mg] 81 mg PO DAILY 10/18/25 [History Confirmed 10/18/25] Lutein 20 mg PO DAILY 10/18/25 [History Confirmed 10/18/25] Magnesium Oxide 400 mg [Mag-Ox 400] 800 mg PO DAILY 10/18/25 [History Confirmed 10/18/25] Allergies/Adverse Reactions: Allergies Allergy/AdvReac Type Severity Reaction Status Date / Time gabapentin Allergy Intermediate Swelling Verified 10/18/25 00:30 of Feet Penicillins Allergy Mild Anaphylactic Verified 10/18/25 00:30 Reaction epinephrine AdvReac Intermediate Irregular Verified 10/18/25 04:21 Heart Beat - Past Medical History Past Medical History: Yes Neurological History: No Pertinent History ENT History: Cataracts Cardiac History: Congestive Heart Failure, Coronary Artery Disease, High Cholesterol, Hypertension, Myocardial Infarction ([place]) Respiratory History: CHF, COPD Endocrine Medical History: Adrenal Insufficiency Musculoskelatal History: Fractures, Osteoarthritis GI Medical History: GERD, Hemorrhoids History: Renal Disease Pyscho-Social History: No Pertinent History Reproductive Disorders: No Pertinent History Comment: [place] in 2006, 3 stints, abd anuersym small one pt states, left wrist and toe on left foot - Past Surgical History Past Surgical History: Yes Neuro Surgical History: No Pertinent History Cardiac History: Cardiac Catheterization, Cardiac Stent Respiratory Surgery: Other GI Surgical History: Appendectomy Genitourinary Surgical Hx: No Pertinent History Musculskeletal Surgical Hx: Joint Replacement, Orthopedic Surgery Female Surgical History: Other Other Surgical History: 3 cardiac stents. Cyst removed from left breast. surgery on both feet. 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 left total knee replacement trachea lazer 18 times dt scar tissue, cyst on left breast removed Significant Family History: no pertinent family hx - Social History Smoking Status: Former smoker How long have you smoked: 20+ Exposure to second hand smoke: No Alcohol: None Drug Use: none - Social Determinants of Health Will the patient participate in the screening: Yes Do you worry about a steady place to live?: No Do you have any problems with any of the following?: No known problems In the past 12 months,have you had to go without utilities?: No Have you or anyone in your house had to go without enough: No Transportation Issues: Yes Has anyone in your support network made you feel unsafe?: No Does the patient want assistance with any of the above?: No Comment: car broke down recently - Physical Exam Vital Signs: Vital Signs - 24 hr Temp Pulse Resp BP BP Pulse Ox 10/18/25 04:08 97.6 F 97 H 18 132/100 99 10/18/25 03:27 94 L 10/18/25 03:00 84 14 141/60 98 10/18/25 02:44 74 15 154/66 97 10/18/25 02:00 70 17 156/71 99 10/18/25 01:30 154/61 96 10/18/25 01:04 69 17 182/67 94 L 10/18/25 01:03 96 10/18/25 00:25 161/62 10/18/25 00:22 97.4 F 71 24 161/62 99 10/18/25 00:16 100 General Appearance: no apparent distress, alert Neurologic Exam: alert, oriented x 3, cooperative, strickler attendant II-XII nml as tested, normal mood/affect, nml cerebellar function, sensation nml, No motor deficits, No sensory deficit, No disoriented, No confusion, No agitation, No uncooperative, No intoxicated appearance Eye Exam: PERRL/EOMI, eyes nml inspection, No scleral icterus, No pale conjunctivae, No photophobia Ears, Nose, Throat Exam: normal ENT inspection Neck Exam: normal inspection, non-tender, supple, full range of motion, No meningismus Respiratory Exam: normal breath sounds, lungs clear, airway intact, No chest tenderness, No respiratory distress Cardiovascular Exam: regular rate/rhythm, normal heart sounds, No murmur, No friction rub, No gallop Gastrointestinal/Abdomen Exam: soft, normal bowel sounds, No tenderness, No distention, No guarding Back Exam: normal range of motion Extremity Exam: normal inspection, normal range of motion, No pedal edema, No swelling Skin Exam: normal color, No rash, No petechiae, No jaundice, No abrasion Results - Labs Lab/Micro Results: Lab Results-Last 24 Hours 10/18/25 10/18/25 10/18/25 Range/Units 00:30 00:30 00:30 WBC 6.3 (3.98-10.04) x10^3/uL RBC 4.38 (3.93-5.22) x10^6/uL Hgb 12.9 (11.2-15.7) g/dL Hct 42.5 (34.1-44.9) % MCV 97.0 H (79.4-94.8) fL MCH 29.5 (25.6-32.2) pg MCHC 30.4 L (32.2-35.5) g/dL RDW 13.4 (11.7-14.4) % Plt Count 106 L (182-369) x10^3/uL MPV 10.9 (9.4-12.3) fL Gran % 66.6 (34.0-71.1) % Immature Gran % (Auto) 0.3 (0.001-0.429) % Nucleat RBC Rel Count 0.0 (0.00-0.2) % Eos # (Auto) 0.18 (0.04-0.36) x10^3/uL Immature Gran # (Auto) 0.02 (0.001-0.031) x10^3u/L Absolute Lymphs (auto) 1.42 (1.18-3.74) x10^3/uL Absolute Monos (auto) 0.44 (0.24-0.86) x10^3/uL Absolute Nucleated RBC 0.00 (0.00-0.012) x10^3u/L Lymphocytes % 22.7 (19.3-51.7) % Monocytes % 7.0 (4.7-12.5) % Eosinophils % 2.9 (0.7-5.8) % Basophils % 0.5 (0.1-1.2) % Absolute Granulocytes 4.17 (1.56-6.13) x10^3/uL Basophils # 0.03 (0.01-0.08) x10^3/uL Sodium 138 (135-145) mmol/L Potassium 3.4 L (3.5-5.1) mmol/L Chloride 105 (98-107) mmol/L Carbon Dioxide 21 L (22-30) mmol/L Anion Gap 15.1 H (5-15) MEQ/L BUN 15 (7-17) mg/dL Creatinine 1.14 H (0.52-1.04) mg/dL Estimated GFR 47.8 ML/MIN Glucose 120 H (74-106) mg/dL Calcium 9.6 (8.4-10.2) mg/dL Total Bilirubin 0.80 (0.2-1.3) mg/dL AST 46 H (14-36) U/L ALT 26 (0-35) U/L Alkaline Phosphatase 262 H (38-126) U/L Troponin I < 0.012 (0.000-0.033) ng/mL Serum Total Protein 8.6 H (6.3-8.2) g/dL Albumin 4.3 (3.5-5.0) g/dL Urine Color (Yellow) Urine Appearance (Clear) Urine pH (4.6-8.0) Ur Specific [place] (1.005-1.030) Urine Protein (Negative) Urine Glucose (UA) (Negative) mg/dL Urine Ketones (Negative) Urine Blood (Negative) Urine Nitrite (Negative) Urine Bilirubin (Negative) Urine Urobilinogen (0.2) mg/dL Ur Leukocyte Esterase (Negative) U Hyaline Cast (Auto) (0-2) /LPF Urine Microscopic RBC (0-5) /HPF Urine Microscopic WBC (0-5) /HPF Ur Epithelial Cells (None Seen) /HPF Urine Bacteria (None Seen) /HPF Urine Culture Reflexed (NO) 10/18/25 Range/Units 02:25 WBC (3.98-10.04) x10^3/uL RBC (3.93-5.22) x10^6/uL Hgb (11.2-15.7) g/dL Hct (34.1-44.9) % MCV (79.4-94.8) fL MCH (25.6-32.2) pg MCHC (32.2-35.5) g/dL RDW (11.7-14.4) % Plt Count (182-369) x10^3/uL MPV (9.4-12.3) fL Gran % (34.0-71.1) % Immature Gran % (Auto) (0.001-0.429) % Nucleat RBC Rel Count (0.00-0.2) % Eos # (Auto) (0.04-0.36) x10^3/uL Immature Gran # (Auto) (0.001-0.031) x10^3u/L Absolute Lymphs (auto) (1.18-3.74) x10^3/uL Absolute Monos (auto) (0.24-0.86) x10^3/uL Absolute Nucleated RBC (0.00-0.012) x10^3u/L Lymphocytes % (19.3-51.7) % Monocytes % (4.7-12.5) % Eosinophils % (0.7-5.8) % Basophils % (0.1-1.2) % Absolute Granulocytes (1.56-6.13) x10^3/uL Basophils # (0.01-0.08) x10^3/uL Sodium (135-145) mmol/L Potassium (3.5-5.1) mmol/L Chloride (98-107) mmol/L Carbon Dioxide (22-30) mmol/L Anion Gap (5-15) MEQ/L BUN (7-17) mg/dL Creatinine (0.52-1.04) mg/dL Estimated GFR ML/MIN Glucose (74-106) mg/dL Calcium (8.4-10.2) mg/dL Total Bilirubin (0.2-1.3) mg/dL AST (14-36) U/L ALT (0-35) U/L Alkaline Phosphatase (38-126) U/L Troponin I (0.000-0.033) ng/mL Serum Total Protein (6.3-8.2) g/dL Albumin (3.5-5.0) g/dL Urine Color Yellow (Yellow) Urine Appearance Clear (Clear) Urine pH 6.0 (4.6-8.0) Ur Specific [place] 1.015 (1.005-1.030) Urine Protein Trace A (Negative) Urine Glucose (UA) Negative (Negative) mg/dL Urine Ketones Negative (Negative) Urine Blood Negative (Negative) Urine Nitrite Negative (Negative) Urine Bilirubin Negative (Negative) Urine Urobilinogen 0.2 (0.2) mg/dL Ur Leukocyte Esterase Moderate A (Negative) U Hyaline Cast (Auto) 3-5 A (0-2) /LPF Urine Microscopic RBC 0-2 (0-5) /HPF Urine Microscopic WBC 21-50 A (0-5) /HPF Ur Epithelial Cells None Seen (None Seen) /HPF Urine Bacteria None Seen (None Seen) /HPF Urine Culture Reflexed YES (NO) - Radiology Impressions Radiology Exams & Impressions: Radiology Procedures Category Date Time Status HEAD WITHOUT CONTRAST [CT] Stat Exams 10/18/25 00:28 Completed MRI BRAIN W & W/O CONTRAST [MRI] Routine Exams 10/18/25 04:07 Ordered - Other Procedures and Tests Respiratory Therapy 10/18/25 04:07 EKG REPEAT IN AM Assessment/Plan (1) Dizziness Current Visit: Yes Status: Acute Assessment & Plan: MRI brain. Check AM orthostatics. Telemetry monitoring. IV fluids. Code(s): R42 - DIZZINESS AND GIDDINESS (2) Near syncope Current Visit: Yes Status: Acute Assessment & Plan: Check ECHO and AM repeat EKG. Telemetry monitoring. (3) Hypokalemia Current Visit: Yes Status: Acute Assessment & Plan: Replete with IV KCl. Code(s): E87.6 - HYPOKALEMIA (4) UTI (urinary tract infection) Current Visit: Yes Status: Acute Assessment & Plan: Asymptomatic. Will initiate IV Rocephin. Code(s): N39.0 - URINARY TRACT INFECTION, SITE NOT SPECIFIED (5) Dehydration Current Visit: Yes Status: Acute Assessment & Plan: IV fluids. Code(s): E86.0 - DEHYDRATION Telemedicine Encounter - Telemedicine Encounter Telemedicine Encounter: "The entirety of this encounter was performed via Telemedicine" This visit was performed using real-time audio and video connection between my location and thepatients locationwith the assistance of a surrogateat the patients location. Written or verbal consent was obtained from the patient/guardian to perform this visit usingsynchrAdvanced Ophthalmic Pharmatelemedicine technology. Any patient questions regarding the telemedicine interaction were answered. Please note that this admission required 46 minutes to complete.
[2025-10-18] MEDS: ROCEPHIN 1 GM / 100 ML NaCl 1 GM/100 ML IVPB IV SCH (04:34)
[2025-10-18] MEDS ORDERED: Coreg ONE (06:47)
[2025-10-18] MEDS: Coreg PO SCH (06:52)
[2025-10-18] MEDS ORDERED: MEDICATION INTERVENTION MC SCH (07:45)
[2025-10-18] MEDS: ECOTRIN 81 MG PO SCH (09:26)
[2025-10-18] MEDS: DIOVAN 80 MG PO SCH (09:26)
[2025-10-18] MEDS: NORCO 7.5/325 MG TAB PO SCH (09:26)
[2025-10-18] MEDS: MAG-OX 400 PO SCH (09:27)
[2025-10-18] MEDS: ZOCOR 20MG PO SCH (09:27)
[2025-10-18] MEDS: TOPIRAMATE PO SCH (09:27)
[2025-10-18] MEDS: NORVASC 5 MG PO SCH (09:27)
[2025-10-18] MEDS: FISH OIL 1,000 MG CAPSULE PO SCH (09:27)
[2025-10-18] MEDS: PLAVIX Tablet PO SCH (09:27)
[2025-10-18] MEDS: Acidophilus TABLET PO SCH (09:27)
[2025-10-18] MEDS: Protonix 40MG Tablet PO SCH (09:27)
[2025-10-18] MEDS: ENOXAPARIN SODIUM SQ SCH (09:28)
[2025-10-18] MEDS ORDERED: LUTEIN 20 MG PO SCH (10:00)
--- NOTE | 2025-10-18 14:50 | XRAY ---
Indication: Dizziness. Negative same-day CT head exam. Sagittal, coronal, and axial MRI brain performed without contrast using T1, T2, FLAIR, diffusion, and ADC sequences. Comparison: None Age-appropriate global atrophy and minimal periventricular degenerative microischemia signal bilaterally. No acute intracranial hemorrhage, abnormal extra-axial fluid collection, or mass effect. Diffusion images negative for restricted signal. 4th ventricle is midline without hydrocephalus. 7/8 cranial nerve complex bilaterally symmetric. Normal flow void signal within the major intracerebral circulation. Normal appearing craniocervical junction and sella turcica. Visualized paranasal sinuses and mastoid air cells are clear. Impression: Atrophy and degenerative microischemia within normal limits. Remaining MRI brain without contrast is negative.
[2025-10-19 05:08] LABS: BASOPHIL % 0.5 % (0.1-1.2); Basophil (Absolute #) 0.02 x10^3/uL (0.01-0.08); Eosinophil (Absolute #) 0.23 x10^3/uL (0.04-0.36); Hematocrit 34.3 % (34.1-44.9); Hemoglobin 10.4 g/dL (11.2-15.7); IMMATURE GRAN # 0.01 x10^3u/L (0.001-0.031); IMMATURE GRAN % 0.2 % (0.001-0.429); Lymphocyte (Absolute #) 2.07 x10^3/uL (1.18-3.74); Mean Corpuscular Hemoglobin 29.5 pg (25.6-32.2); Mean Corpuscular Hgb Concent. 30.3 g/dL (32.2-35.5); Monocyte (Absolute #) 0.38 x10^3/uL (0.24-0.86); NUCLEATED RBC # 0.00 x10^3u/L (0.00-0.012); NUCLEATED RBC % 0.0 % (0.00-0.2); Platelet Count 85 x10^3/uL (182-369); Red Blood Count 3.53 x10^6/uL (3.93-5.22); White Blood Count 4.4 x10^3/uL (3.98-10.04)
[2025-10-19 05:32] LABS: Calcium 8.8 mg/dL (8.4-10.2); Carbon Dioxide 23.0 mmol/L (22-30); Creatinine 1 1.21 mg/dL (0.52-1.04); EST GLOMERULAR FILTRATION RATE 44.5 ML/MIN; Glucose 80.0 mg/dL (74-106); Potassium 4.0 mmol/L (3.5-5.1)
[2025-10-19] MEDS: SYNTHROID 25 MCG PO SCH (06:49)
[2025-10-19 08:00] LABS: Slide Review 1 YES
[2025-10-19] MEDS: VENTOLIN COMMON CANISTER IH PRN (08:19)
[2025-10-19 09:36] VITALS: TEMP 97.8
[2025-10-19] MEDS ORDERED: ROCEPHIN 1 GM / 100 ML NaCl 1 GM/100 ML IVPB IV SCH (10:00)
--- NOTE | 2025-10-19 10:32 | PCM.DS ---
Discharge Summary Date of Admission: 10/18/25 03:42 Date of Discharge: 10/19/25 Admitting Physician: VAMSHI CUELLO MD Primary Care Provider: CONNIE SEWELL Allergies Allergies gabapentin Allergy (Intermediate, Verified 10/18/25 00:30) Swelling of Feet Penicillins Allergy (Mild, Verified 10/18/25 00:30) Anaphylactic Reaction epinephrine Adverse Reaction (Intermediate, Verified 10/18/25 04:21) Irregular Heart Beat slowed HR Hospital Summary - Hospital Course Hospital Course: is a 85-year-old female with a history of hypertension, hyperlipidemia, coronary artery disease, COPD, adrenal insufficiency, GERD, and chronic kidney disease who presented to the ED on 10/17/25 with dizziness. She described feeling as though she was going to pass out without loss of consciousness, accompanied by nausea but no vomiting. Symptoms partially resolved but dizziness persisted. She denied trauma, fever, focal weakness, numbness, or paresthesias. Neurology was consulted and recommended a brain MRI. On 10/19, she was sitting up in a chair, orthostatic vitals reviewed, and she was not symptomatic. EKG showed sinus rhythm with supraventricular bigeminy and a left bundle branch block. Echocardiogram revealed an ejection fraction of 55% with diastolic dysfunction, and she was advised to follow up with cardiology as an outpatient. MRI and CT of the brain were both negative for acute concern. She was started on Synthroid for elevated TSH of 8.036. This morning she had mild wheezing, treated with a breathing treatment, and maintained oxygen saturation of 94% on room air. Ceftriaxone was discontinued as her urine culture was negative. Labs were overall nonconcerning, and kidney function was at baseline. The patient declined home health care and expressed her desire to return home. At discharge, she was clinically stable, with no further concerns. - Vitals & Intake/Output Vital Signs: Vital Signs Temperature 97.8 F 10/19/25 08:00 Pulse Rate 57 L 10/19/25 08:31 Respiratory Rate 18 10/19/25 08:31 Blood Pressure 151/65 10/19/25 08:00 O2 Sat by Pulse Oximetry 97 10/19/25 08:31 Intake & Output: Intake & Output 10/16/25 10/17/25 10/18/25 10/19/25 11:59 11:59 11:59 11:59 Intake Total 777 979 Output Total 9484 202 Balance -187 629 Weight 54.5 kg - Lab Result Diagrams: 10/19/25 04:55 10/19/25 04:55 Lab Results-Last 24 Hrs: Lab Results-Last 24 Hours 10/18/25 10/19/25 10/19/25 Range/Units 00:30 04:55 04:55 WBC 4.4 (3.98-10.04) x10^3/uL RBC 3.53 L (3.93-5.22) x10^6/uL Hgb 10.4 L (11.2-15.7) g/dL Hct 34.3 (34.1-44.9) % MCV 97.2 H (79.4-94.8) fL MCH 29.5 (25.6-32.2) pg MCHC 30.3 L (32.2-35.5) g/dL RDW 13.5 (11.7-14.4) % Plt Count 85 L (182-369) x10^3/uL MPV 10.6 (9.4-12.3) fL Gran % 37.7 (34.0-71.1) % Immature Gran % (Auto) 0.2 (0.001-0.429) % Nucleat RBC Rel Count 0.0 (0.00-0.2) % Eos # (Auto) 0.23 (0.04-0.36) x10^3/uL Immature Gran # (Auto) 0.01 (0.001-0.031) x10^3u/L Absolute Lymphs (auto) 2.07 (1.18-3.74) x10^3/uL Absolute Monos (auto) 0.38 (0.24-0.86) x10^3/uL Absolute Nucleated RBC 0.00 (0.00-0.012) x10^3u/L Lymphocytes % 47.6 (19.3-51.7) % Monocytes % 8.7 (4.7-12.5) % Eosinophils % 5.3 (0.7-5.8) % Basophils % 0.5 (0.1-1.2) % Absolute Granulocytes 1.64 (1.56-6.13) x10^3/uL Basophils # 0.02 (0.01-0.08) x10^3/uL Sodium 136 (135-145) mmol/L Potassium 4.0 (3.5-5.1) mmol/L Chloride 109 H (98-107) mmol/L Carbon Dioxide 23 (22-30) mmol/L Anion Gap 8.4 (5-15) MEQ/L BUN 16 (7-17) mg/dL Creatinine 1.21 H (0.52-1.04) mg/dL Estimated GFR 44.5 ML/MIN Glucose 80 (74-106) mg/dL Calcium 8.8 (8.4-10.2) mg/dL TSH 3rd Generation 8.036 H (0.470-4.680) mIU/L Slides for Path Review YES Micro Results-Entire Visit: Microbiology 10/18/25 02:25 Urine Culture - Final Urine, Void <10K NORMAL SKIN KASEY PROBABLE SKIN CONTAMINANT - Radiology Exams Ordered Rad Exams-Entire Visit: Radiology Procedures Category Date Time Status ECHO W/2D AND DOPPLER [US] Routine Exams 10/18/25 04:38 Taken HEAD WITHOUT CONTRAST [CT] Stat Exams 10/18/25 00:28 Completed MRI BRAIN W/O CONTRAST [MRI] Routine Exams 10/18/25 04:07 Completed - Procedures and Test Procedures and Tests throughout Hospitalization: Therapy Orders & Screens 10/18/25 04:07 PT Eval & Treat ( Order) ONCE Reason for Eval:: dizziness Diagnosis: Near syncope, dizziness EKG REPEAT IN AM Comment: Diagnosis: Near syncope, dizziness 10/19/25 08:31 Respiratory Therapy Assessment DAILY Comment: Diagnosis: Near syncope, dizziness 10/19/25 09:52 EKG STAT Comment: Diagnosis: Near syncope, dizziness Discharge Exam General Appearance: no apparent distress, alert, thin Neurologic Exam: alert, oriented x 3, cooperative, normal mood/affect, nml cerebellar function, sensation nml, No motor deficits Eye Exam: PERRL, EOMI, eyes nml inspection Ears, Nose, Throat Exam: normal ENT inspection, pharynx normal, moist mucous membranes Neck Exam: normal inspection, non-tender, supple, full range of motion Respiratory Exam: wheezing, No respiratory distress Cardiovascular Exam: normal heart sounds, irregular Gastrointestinal/Abdomen Exam: soft, No tenderness, No mass Pelvic Exam: deferred Rectal Exam: deferred Back Exam: normal inspection, normal range of motion, No CVA tenderness, No vertebral tenderness Extremity Exam: normal inspection, normal range of motion Skin Exam: normal color, warm, dry Final Diagnosis/Problem List - Final Discharge Diagnosis/Problem (1) Hypothyroidism Current Visit: Yes Status: Acute Assessment & Plan: - New dx - TSH 8.036 - Started on Synthroid 25mcg daily Code(s): E03.9 - HYPOTHYROIDISM, UNSPECIFIED (2) Hypokalemia Current Visit: Yes Status: Resolved Assessment & Plan: - Resolved - K+ 4.0 Code(s): E87.6 - HYPOKALEMIA (3) CHF (congestive heart failure) Current Visit: No Status: Chronic Assessment & Plan: - EF 55% with distolic dysfunction - EKG reviewed today - F/U OP with cardiology OP Code(s): I50.9 - HEART FAILURE, UNSPECIFIED (4) UTI (urinary tract infection) Current Visit: Yes Status: Resolved Assessment & Plan: - UC negative - Antibiotic stopped Code(s): N39.0 - URINARY TRACT INFECTION, SITE NOT SPECIFIED (5) Dehydration Current Visit: Yes Status: Resolved Assessment & Plan: - Resolved - CMP reviewed Code(s): E86.0 - DEHYDRATION (6) Dizziness Current Visit: Yes Status: Resolved Assessment & Plan: - Resolved - Orthostats reviewed this AM - IVF stopped - EKG reviewed - tele reviewed - CBC, CMP reviewed Code(s): R42 - DIZZINESS AND GIDDINESS (7) Near syncope Current Visit: Yes Status: Resolved Assessment & Plan: - Asymptomatic today D/C plan of care time> 40 minutes - Discharge Discharge Date: 10/19/25 Disposition: Home, Self-Care Condition: Stable Prescriptions: New Levothyroxine Sodium 25 Mcg [Synthroid 25 Mcg] 25 mcg PO QAM@0700 30 Days #30 tablet Continue Atorvastatin Calcium 20 mg PO HS Esomeprazole Magnesium [Nexium] 20 mg PO BID Meclizine HCl 25 mg [Antivert 25 mg] 25 mg PO UD PRN PRN Reason: Dizziness Amlodipine Besylate 2.5 mg PO BID Hydrocodone/Acetaminophen [Hydrocodone-Acetamin 7.5-325] 1 each PO TID Ergocalciferol (Vitamin D2) [Vitamin D] 50,000 unit PO .MONTHLY carvediloL [Coreg] 6.25 mg PO DAILY Clopidogrel Bisulfate [Plavix] 75 mg PO DAILY Valsartan 80 mg PO DAILY Limestone-3 Fatty Acids [Limestone-3] 1,000 mg PO DAILY Albuterol Sulfate [Proair Respiclick] 90 mcg IH TIDPRN PRN PRN Reason: Shortness Of Breath Topiramate 50 mg PO DAILY Aspirin EC 81 mg [Ecotrin 81 mg] 81 mg PO DAILY Lutein 20 mg PO DAILY Magnesium Oxide 400 mg [Mag-Ox 400] 800 mg PO DAILY Additional Instructions: * Sit up on side of bed and sit for a few minutes prior to getting up to decrease risk of falls. Follow up with cardiology and PCP. Will need repeat Orthosat Blood pressures in office. Follow up with: CONNIE SEWELL [Primary Care Provider, INTERNAL MEDICINE] - 10/24/25 10:30 am SAMM JAUREGUI PA [NON-STAFF PHY W/O PRIVILEGES, UNKNOWN] - 11/06/25 2:30 pm Referral Note: [facility]
[2025-10-19 12:33] VITALS: BP 143/60; PULSE 64; RESP 16; O2SAT 95
[2025-11-21] MEDS ORDERED: VITAMIN D2 PO SCH (10:00)
== END 2025-10-19 12:58 | disposition home or self-care (01) ==
LOC: ED 00:09 → MED SURG 03:42
PROVIDERS: ADMIT Internal Medicine; ATTEND Internal Medicine
DX: E03.9 Hypothyroidism, unspecified (principal); E87.6 Hypokalemia; Z59.82 Transportation insecurity; I13.0 Hypertensive heart and chronic kidney disease with heart failure and stage 1 through stage 4 chronic kidney disease, or unspecified chronic kidney disease; N18.9 Chronic kidney disease, unspecified; I50.9 Heart failure, unspecified; N39.0 Urinary tract infection, site not specified; E86.0 Dehydration; R42 Dizziness and giddiness; R55 Syncope and collapse; E78.5 Hyperlipidemia, unspecified; J44.9 Chronic obstructive pulmonary disease, unspecified; I25.10 Atherosclerotic heart disease of native coronary artery without angina pectoris; Z79.01 Long term (current) use of anticoagulants; Z79.899 Other long term (current) drug therapy
CPT/HCPCS: 36415; 70450; 70551; 80048; 80053; 81001; 84132; 84443; 84484; 85025; 87086; 93005; 93041; 93268; 93306; 94640; 94760; 97161; 99285; G0378; Q3014